=== PATIENT | male | born 1945 | race Two or more races ===

== ENCOUNTER → 2017-05-31 11:08 | Outpatient (POV) | payer OTHER, SELFPAY ==
[2017-05-31 11:25] VITALS: BP 130/74; PULSE 91; RESP 20; O2SAT 97; BMI 32.9
--- NOTE | 2017-05-31 12:07 | HMH.PAINSOAP ---
[facility] Pain Management SOAP Note Subjective:: Patient Is a very pleasant 71-year-old man who presents today for follow-up. Patient has been seen in the past by us he was getting [place] 7.5 mg 1 p.o. twice daily. He said that this medication helped him greatly. Patient did however move down to [place] for a time. Patient is now back in [place]. Patient is interested in new MRI and potentially more injections. Patient states his pain is a 6 out of 10 today. Most of it being in his low back and his left leg. Patient also states he has some new neck pain as well. Patient states that activity makes his pain worse while rest makes it better. ROS General: no recent weight change, no fever, no sleep disturbances Respiratory: no cough, no shortness of air, no recurring pulmonary infections Cardiovascular/Peripheral Vascular: No chest pain, No palpitations, no edema, no shortness of breath. Gastrointestinal: no incontinence, normal bowel movements reported Genitourinary: no incontinence Musculoskeletal: Neck pain, back pain, bilateral leg pain Psychiatric: normal mood/ affect, [denies depression], [denies anxiety] Neurological: [denies weakness in extremities], [denies balance issues] Objective:: Physical Exam General: Alert and oriented x3, no acute distress, pleasant and cooperative, on room air Lungs: Resps E/U, Symmetrical chest expansion, Eyes: PERRL Musculoskeletal: Flexion and extension of lumbar spine somewhat guarded secondary to pain, deep tendon reflexes normal, strength in upper and lower extremities [5/5], slightly antalgic gait noted, positive straight leg test bilaterally Neurological: speech clear, medical planner equal, no gross sensory deficits Assessment:: Degenerative disc disease of the lumbar spine with lumbar radiculopathy, lumbar spondylosis, neck pain Plan:: We will order a lumbar MRI for this patient. We will also give him 1 month of [place] 7.5 mg [address] twice daily. Dr. Chang has reviewed this chart and agrees with this plan of care. Patient and I had a long discussion about our contract and about the legalities of him going to [place]. Patient understands that he can only receive medication from one location. Patient is to notify us of any travel. Patient's contract was renewed. Patient's ASHLEY #[id number] reviewed and appropriate. We will send the patient for drug screen at his next visit. Patient has been prescribed a controlled substance after being counseled on the medication, medication safety, and possible side effects. ASHLEY report has been obtained and reviewed prior to prescription and found to be appropriate. Opioid contract was reviewed and signed by the patient, and that they have agreed to all of the terms set forth by our compliance program. This note was dictated using voice recognition software and may contain errors or omissions
--- NOTE | 2017-05-31 12:10 | P.CONS_ITS ---
[facility] Pain Management SOAP Note Subjective:: Patient Is a very pleasant 71-year-old man who presents today for follow-up. Patient has been seen in the past by us he was getting [place] 7.5 mg 1 p.o. twice daily. He said that this medication helped him greatly. Patient did however move down to [place] for a time. Patient is now back in [place]. Patient is interested in new MRI and potentially more injections. Patient states his pain is a 6 out of 10 today. Most of it being in his low back and his left leg. Patient also states he has some new neck pain as well. Patient states that activity makes his pain worse while rest makes it better. ROS General: no recent weight change, no fever, no sleep disturbances Respiratory: no cough, no shortness of air, no recurring pulmonary infections Cardiovascular/Peripheral Vascular: No chest pain, No palpitations, no edema, no shortness of breath. Gastrointestinal: no incontinence, normal bowel movements reported Genitourinary: no incontinence Musculoskeletal: Neck pain, back pain, bilateral leg pain Psychiatric: normal mood/ affect, [denies depression], [denies anxiety] Neurological: [denies weakness in extremities], [denies balance issues] Objective:: Physical Exam General: Alert and oriented x3, no acute distress, pleasant and cooperative, on room air Lungs: Resps E/U, Symmetrical chest expansion, Eyes: PERRL Musculoskeletal: Flexion and extension of lumbar spine somewhat guarded secondary to pain, deep tendon reflexes normal, strength in upper and lower extremities [5/5], slightly antalgic gait noted, positive straight leg test bilaterally Neurological: speech clear, bus escort equal, no gross sensory deficits Assessment:: Degenerative disc disease of the lumbar spine with lumbar radiculopathy, lumbar spondylosis, neck pain Plan:: We will order a lumbar MRI for this patient. We will also give him 1 month of [place] 7.5 mg [address] twice daily. [address]. Chang has reviewed this chart and agrees with this plan of care. Patient and I had a long discussion about our contract and about the legalities of him going to [place]. Patient understands that he can only receive medication from one location. Patient is to notify us of any travel. Patient's contract was renewed. Patient's ASHLEY #[id number] reviewed and appropriate. We will send the patient for drug screen at his next visit. Patient has been prescribed a controlled substance after being counseled on the medication, medication safety, and possible side effects. ASHLEY report has been obtained and reviewed prior to prescription and found to be appropriate. Opioid contract was reviewed and signed by the patient, and that they have agreed to all of the terms set forth by our compliance program. This note was dictated using voice recognition software and may contain errors or omissions
== END ==
PROVIDERS: Family Provider Family Medicine; PCP Family Medicine; Visit Provider Clinical Nurse Specialist Family Health
DX: M47.26 Other spondylosis with radiculopathy, lumbar region (principal)
CPT/HCPCS: 99212

== ENCOUNTER → 2018-06-06 10:04 | Outpatient (POV) | payer MEDICARE, SELFPAY ==
[2018-06-06 10:24] VITALS: BP 159/75; PULSE 74; RESP 18; O2SAT 98; BMI 33.7
--- NOTE | 2018-06-06 10:32 | P.CONS_ITS ---
[facility] Pain Management SOAP Note Subjective:: Patient is a pleasant 72-year-old male who presents today for follow- up. Patient was last seen last year since that time he moved to [place] and is now back. Patient was getting [place] 7.5 mg 1 p.o. twice daily however we will be unable to continue this due to him receiving medication from another physician along with an unattended UDS. Patient and I discussed potential injections he rates his pain an 8 out of 10 today he states that injections do not work for him. He is also asking me about primary care doctors in the area. ROS General: no recent weight change, no fever, no sleep disturbances Respiratory: no cough, no shortness of air, no recurring pulmonary infections Cardiovascular/Peripheral Vascular: No chest pain, No palpitations, no edema, no shortness of breath. Gastrointestinal: no incontinence, normal bowel movements reported Genitourinary: no incontinence Musculoskeletal: Back pain, leg pain Psychiatric: normal mood/ affect, Neurological: [denies weakness in extremities], [denies balance issues] Objective:: Physical Exam General: Alert and oriented x3, no acute distress, pleasant and cooperative, [on room air] Lungs: Resps E/U, Symmetrical chest expansion, Eyes: PERRL Musculoskeletal: Flexion and extension of lumbar spine somewhat guarded secondary to pain, deep tendon reflexes normal, strength in upper and lower extremities [5/5], [abnormal gait noted] Neurological: speech clear, ip/mosaic technician equal, no gross sensory deficits Assessment:: Degenerative disc disease lumbar spine with lumbar radiculopathy Plan:: We will follow-up with this patient on an as-needed basis if he decides he would like to move forward with injective therapy. I also gave him information in regards to primary care doctors in the area. Dr. Chang has reviewed this note and agrees with this plan of care. This note was dictated using voice recognition software and may contain errors or omissions
== END ==
PROVIDERS: PCP Family Medicine Geriatric Medicine; Visit Provider Clinical Nurse Specialist Family Health
DX: M51.16 Intervertebral disc disorders with radiculopathy, lumbar region (principal)
CPT/HCPCS: 99212

== ENCOUNTER → 2021-04-08 10:52 | Outpatient (POV) | payer MEDICARE, SELFPAY ==
--- NOTE | 2021-07-03 08:00 | HMH.PMCON ---
Assessment and Plan (1) Degenerative joint disease (DJD) of lumbar spine Status: Acute Category: Medical Code(s): M47.816 - Spondylosis without myelopathy or radiculopathy, lumbar region (2) Lumbar radiculopathy Status: Acute Category: Medical Code(s): M54.16 - Radiculopathy, lumbar region - Assessment and plan all Dx Assessment and Plan for all problems:: Patient has tried and failed conservative therapies of home stretching and anti-inflammatories he has currently taking hydrocodone 7.5 mg twice a day as needed for pain. He does report failing physical therapy in the past. It worsened his pain. We will schedule the patient for a lumbar epidural steroid injection at L4-5. Risks and benefits of the procedure were discussed with the patient. Dr. Chang has reviewed this note and agrees with this plan of care. This note was dictated using voice recognition software and make contain errors or omissions. HPI - Data of Consult Patient: new to practice Consult date: 04/08/21 Requesting Physician: Rhiannon Montague APRN - Consult Narrative Reason for consult: Low back and bilateral leg pain History of present illness: Mr. Mart is a 75 year old male who presents today for consultation for low back and bilateral lower extremity pain. Mr. Mart has been treated in our clinic in the past, with it being more than 3 years ago. Patient states he has chronic back and leg pain and that his pain has worsened over the last few months. Is retired and states that his pain limits his physical activity. Reports pain to be Constant in nature and sharp at times with numbness and tingling. Patient had epidural injections in the past and reports significant relief with these injections. CC: Rhiannon Montague APRN [facility] History I have reviewed the patient's past medical history: Yes Medical History: Reports:: Diabetes Mellitus Type 2, Hypertension *Have you ever received a pneumonia vaccine?: Yes *Have you received a flu vaccine this season?: Yes Other Surgeries: Yes: No Previous Surgery - *Social History Last grade of school completed: 7th or 8th Smoking Status: Current every day smoker Tobacco Type: cigarettes Alcohol Intake: current *Occupational Status:: retired *Travel in the last 8 weeks: None Family Hx:: Unable to obtain, No significant family history Review of Systems - *Musculoskeletal Reports back pain, Reports radiating pain into limb, Reports tingling Comments: Low back pain radiating to bilateral lower extremities Meds Home Medications Medication Instructions Recorded Confirmed Type Finasteride [Proscar] 5 mg PO DAILY 05/31/17 05/31/17 History Hydrocodone/Acetaminophen 1 each PO DIRECTED 05/31/17 05/31/17 History [Hydrocodone-Acetamin 5-325 mg] Insulin Glargine,Hum.rec.anlog 15 unit SQ DAILY 05/31/17 05/31/17 History [Lantus Insulin 100units/mL 10mL vial] Metformin HCl 1,000 mg PO BID 05/31/17 05/31/17 History Terazosin HCl [Hytrin 5mg Capsule] 5 mg PO DAILY 05/31/17 05/31/17 History lisinopriL [Lisinopril 20mg Tab] 20 mg PO DAILY 05/31/17 05/31/17 History Hydrocodone/Acetaminophen 1 tab PO BID #60 tab 05/09/21 Rx [Hydrocodone-Acetamin 7.5-325] Allergies Allergy/AdvReac Type Severity Reaction Status Date / Time No Known Drug Allergies Allergy Unknown Unverified 02/16/17 14:11 [NO KNOWN DRUG ALLERGIES] Opioid Risk Tool - Opioid Risk Tool-Male Family hx alcohol abuse: N Family hx illegal drugs: N Family hx rx drug abuse: N Personal hx alcohol abuse: N Personal hx illegal drugs: N Personal hx rx drug abuse: N Age: 45+ Hx of sexual abuse: N Mental health issues-ADD,OCD,Bipolar, etc: N Hx of depression: N Male Risk Score: 0
== END ==
PROVIDERS: Visit Provider Clinical Nurse Specialist Family Health
DX: M51.16 Intervertebral disc disorders with radiculopathy, lumbar region (principal)
CPT/HCPCS: 99212; G0463

== ENCOUNTER → 2021-05-08 13:25 | Outpatient (POV) | payer MEDICARE, SELFPAY ==
[2021-05-08 13:56] VITALS: BP 152/72; PULSE 70; RESP 20; TEMP 36; O2SAT 97; BMI 33.6
--- NOTE | 2021-05-08 16:27 | P.CONS_ITS ---
[facility] Pain Management SOAP Note Subjective:: Patient is a pleasant 75-year-old male who is here for medication refill and follow-up. Patient is currently being treated for degenerative disc disease of the lumbar spine with lumbar radiculopathy symptoms. Patient is being managed with [place] 7.5 mg twice a day. Patient denies any side effects from the medications. Patient denies any changes to the location and type of pain. Patient states that this is adequately helping manage his pain. Rates pain as 7 out of 10. [facility] number [id number]. General: No recent weight changes, no fever, no sleep disturbances Respiratory: No cough, no shortness of air, no recurring pulmonary infections Cardiovascular/peripheral vascular: No chest pain, no palpitations, no edema, no shortness of breath Gastrointestinal: No new onset incontinence, normal bowel movements reported Genitourinary: No new onset incontinence Musculoskeletal: Low back pain Psychiatric: [Normal mood/affect] Neurological: [Denies weakness in extremities], [denies balance issues] Objective:: General: Alert and oriented x3, no acute distress, pleasant and cooperative, [on room air] Lungs: Respirations even and unlabored, symmetrical chest expansion Eyes: PERRL Musculoskeletal: Flexion and extension of lumbar [spine] somewhat guarded secon pushpa to pain, [antalgic gait noted] Neurological: Speech clear, no gross sensory deficit Assessment:: Degenerative disc disease of the lumbar spine with lumbar radiculopathy symptoms Plan:: We will continue the patient's [place] 7.5 mg twice a day. We will provide the patient with 1 month of refills. We would like to see the patient back in 1 month for follow-up and reevaluation of chronic pain syndrome. Patient has been advised of risks of oversedation with the prescribed medication. Narcan has been offered to the paitent in the event of oversedation. Patient has been advised that a family member should also be educated regarding administration of Narcan. Patient has been instructed to contact the clinic with any concerns before the next appointment. Dr. Chang has reviewed this note and agrees with this plan of care. This note was dictated using voice recognition software and make contain errors or omissions. [facility] History *Have you ever received a pneumonia vaccine?: Yes *Have you received a flu vaccine this season?: Yes - *Social History Smoking Status: Current every day smoker Alcohol Intake: current *Occupational Status:: retired *Travel in the last 8 weeks: None Family Hx:: Unable to obtain, No significant family history
[2021-05-08 16:33] LABS: Amphetamine/Metha Screen,Urine Negative ng/ml (<1000)
[2021-05-08 16:34] LABS: Barbiturates Screen,Urine Negative ng/ml (<200)
[2021-05-08 16:35] LABS: Benzodiazepines Screen,Urine Negative ng/ml (<200); Cannabinoid Screen,Urine Negative ng/ml (<50)
[2021-05-08 16:36] LABS: Cocaine Screen,Urine Negative ng/ml (<300)
[2021-05-08 16:37] LABS: Methadone Screen,Urine Negative ng/ml (<300); Opiate Screen,Urine Positive ng/ml (<300)
[2021-05-08 16:38] LABS: Phencyclidine Screen,Urine Negative ng/ml (<25)
[2021-05-19 23:11] LABS: Codeine Negative (Cutoff=100); Hydrocodone Positive (.); Hydromorphone Positive (.); Morphine Positive (.); Opiates Positive (.)
== END ==
PROVIDERS: Visit Provider Student in an Organized Health Care Education/Training Program
DX: M51.16 Intervertebral disc disorders with radiculopathy, lumbar region (principal); Z79.891 Long term (current) use of opiate analgesic
CPT/HCPCS: 80305; 80361; 80365; 99212; G0463; G0480

== ENCOUNTER → 2021-10-14 09:10 | Outpatient (POV) | payer MEDICARE, SELFPAY ==
[2021-10-14 09:27] VITALS: BP 127/70; PULSE 80; RESP 20; O2SAT 96; BMI 33.7
--- NOTE | 2021-10-14 13:20 | HMH.PAINSOAP ---
[facility] Pain Management SOAP Note Subjective:: Patient is a pleasant 76-year-old male who presents today for follow-up. We are currently treating the patient for degenerative disc disease of lumbar spine with lumbar radiculopathy symptoms. Today he rates his pain a 10 out of 10. He states his pain is all in his low back that radiates down his right leg to his right foot. He does also state he has some right shoulder pain. He describes this as a aching, sharp, throbbing sensation that is worse with increased activity. Patient states this is a new pain. He states he has had a couple falls over the last month at his daughter's house. Patient's daughter states that she feels like his balance is altered and he has had increasing issues. He stated that she has 2 steps that are different heights that he tripped over them but did not fall, however he was awkwardly positioned and he feels that he may have pulled something. Has had injective therapy in the past with significant improvement. Patient has tried [id number] Tylenol and ibuprofen with minimal improvement of symptoms. He has tried and failed conservative treatment of oral medications and home stretching. He has in the past been prescribed [place] 7.5 mg twice a day as needed for pain. He states this medication has helped in the past. Patient states that his Dr. Richardson that was in [place] gave him his last injection and it provided significant improvement of his symptoms. She cannot remember what injection that was. His Alirio is [id number]. It has been reviewed and appropriate. Review of Systems: General: No recent weight changes, no fever, no sleep disturbances Respiratory: No cough, no shortness of air, no recurring pulmonary infections Cardiovascular/peripheral vascular: No chest pain, no palpitations, no edema, no shortness of breath Gastrointestinal: No new onset incontinence, normal bowel movements reported Genitourinary: No new onset incontinence Musculoskeletal: Right shoulder pain, low back pain, right leg pain Psychiatric: [Normal mood/affect] Neurological: [Denies weakness in extremities], [denies balance issues] Objective:: Physical Exam: General: Alert and oriented x3, no acute distress, pleasant and cooperative Lungs: Respirations even and unlabored, symmetrical chest expansion Eyes: PERRL Musculoskeletal: Flexion and extension of lumbar [spine] somewhat guarded secondary to pain, [antalgic gait noted]. Point tenderness noted along right shoulder and right lumbar spine. Neurological: Speech clear, no gross sensory deficit Assessment:: Degenerative disc disease of lumbar spine with lumbar radiculopathy symptoms, right shoulder pain Plan:: Patient is having significant pain along his right shoulder and down his lumbar spine to his right foot. Patient has had a couple of near falls at his daughter's home over the last month. We do not have any updated lumbar imaging or shoulder imaging. I have discussed with the patient that before we do any injective therapy I would like to have updated imaging. I will order a lumbar MRI and a right shoulder MRI at today's visit. I will also prescribe the patient a compounding cream. We had previously written [place] 7.5 mg in the past however patient does have a history of failed urine drug screens. At this time I will not prescribe any medications. I have also discussed with the patient regarding signing a release so we can get his records from Dr. Richardson. The patient will follow up following imaging. At that time we will reevaluate his symptoms. Patient has been instructed to contact the clinic with any concerns before the next appointment. Dr. Chang has reviewed this note and agrees with this plan of care. This note was dictated using voice recognition software and make contain errors or omissions. [facility] History I have reviewed the patient's past medical history: Yes Medical History: Reports:: Diabetes Mellitus Type 2, Hypertension *Ash
== END ==
PROVIDERS: PCP Emergency Medicine; Visit Provider Nurse Practitioner Family
DX: M51.16 Intervertebral disc disorders with radiculopathy, lumbar region (principal); M25.511 Pain in right shoulder
CPT/HCPCS: 99212; G0463

== ENCOUNTER → 2022-08-05 12:37 | Outpatient (CLI) | payer MEDICARE, SELFPAY ==
[2022-08-05 13:40] LABS: Basophils % 0.3 % (0.1-2.0); Eosinophils # 0.1 K/mm3 (0.0-0.4); Eosinophils % 1.5 % (0.1-12.0); Hematocrit 39.9 % (42.0-52.0); Hemoglobin 12.9 g/dL (14.1-18.0); Lymphocytes # 1.4 K/mm3 (0.7-4.5); Lymphocytes % 19.8 % (10-50); Mean Corpuscular HGB Conc 32.3 g/dL (31.8-35.4); Mean Corpuscular Hemoglobin 28.7 pg (27.0-31.2); Mean Platelet Volume 8.9 fl (7.4-10.4); Monocytes # 0.4 K/mm3 (0.1-1.0); Monocytes % 5.6 % (1.7-9.3); Neutrophils % 72.8 % (37.0-80.0); Platelet Count 167 K/mm3 (142-424); Red Blood Count 4.48 M/mm3 (4.60-6.20); Red Cell Distribution Width 13.1 % (11.5-17.5); White Blood Count 6.9 K/mm3 (4.8-10.8)
[2022-08-05 13:50] LABS: Hemoglobin A1C 7.6 % (4.0-6.0)
[2022-08-05 14:24] LABS: Alanine Aminotransferase 33 U/L (12-78); Albumin Level 4.6 g/dl (3.5-5.0); Alkaline Phosphatase 53 U/L (38-126); Anion Gap 15.8 mEq/L (5-15); Aspartate Amino Transferase 32 U/L (17-59); Bilirubin,Indirect 1.1 mg/dL (0.0-0.9); Bilirubin,Total 1.1 mg/dl (0.2-1.3); Bilirubin,Unconjugated 1.3 mg/dL (0.0-1.1); Blood Urea Nitrogen 22 mg/dl (9-20); Calcium 10.1 mg/dl (8.4-10.2); Carbon Dioxide 30 mmol/L (22.0-30.0); Chloride 101 mmol/L (98-107); Chol/HDL Ratio 2.2 (1-3.5); Cholesterol 109 mg/dl (140-200); Estimated Glomerular Filt Rate 93 ml/min (>60); GFR (African American) 113 ML/MIN (>60); Glucose 134 mg/dl (74-100); HDL Cholesterol 50 mg/dl (40-60); Potassium 4.8 mmoL/L (3.5-5.1); Sodium 142 mmol/L (136-145); Total Protein,Serum 7.4 g/dl (6.3-8.2); Triglycerides 107 mg/dl (30-150); VLDL Cholesterol 21 mg/dL (0-40)
[2022-08-05 14:36] LABS: Direct LDL Cholesterol 43.93 mg/dL (100-129)
[2022-08-05 14:40] LABS: Free T4 (Free Thyroxine) 0.88 ng/dl (0.78-2.19)
[2022-08-05 14:56] LABS: Thyroid Stimulating Hormone 2.14 uIU/mL (0.465-4.68)
== END ==
PROVIDERS: PCP Emergency Medicine; Visit Provider Nurse Practitioner Family
DX: E11.9 Type 2 diabetes mellitus without complications (principal); E78.2 Mixed hyperlipidemia; I10 Essential (primary) hypertension; I48.20 Chronic atrial fibrillation, unspecified; R00.2 Palpitations; Z79.4 Long term (current) use of insulin; R94.31 Abnormal electrocardiogram [ECG] [EKG]
CPT/HCPCS: 36415; 80048; 80061; 80076; 83036; 84439; 84443; 85025; 93225

== ENCOUNTER → 2022-11-24 11:51 | Outpatient (CLI) | payer MEDICARE, SELFPAY ==
[2022-11-24 13:42] LABS: Basophils % 0.2 % (0.1-2.0); Eosinophils # 0.1 K/mm3 (0.0-0.4); Eosinophils % 1.2 % (0.1-12.0); Hemoglobin 14.3 g/dL (14.1-18.0); Lymphocytes # 1.9 K/mm3 (0.7-4.5); Lymphocytes % 20.3 % (10-50); Mean Corpuscular HGB Conc 31.2 g/dL (31.8-35.4); Mean Corpuscular Hemoglobin 28.1 pg (27.0-31.2); Mean Platelet Volume 8.7 fl (7.4-10.4); Monocytes # 0.5 K/mm3 (0.1-1.0); Monocytes % 5.2 % (1.7-9.3); Neutrophils # 6.7 K/mm3 (1.8-7.8); Platelet Count 214 K/mm3 (142-424); Red Blood Count 5.11 M/mm3 (4.60-6.20); Red Cell Distribution Width 13.8 % (11.5-17.5); White Blood Count 9.2 K/mm3 (4.8-10.8)
[2022-11-24 13:56] LABS: Anion Gap 15.5 mEq/L (5-15); Blood Urea Nitrogen 23 mg/dl (9-20); Calcium 9.9 mg/dl (8.4-10.2); Carbon Dioxide 28 mmol/L (22.0-30.0); Chloride 102 mmol/L (98-107); Estimated Glomerular Filt Rate 65 ml/min (>60); GFR (African American) 78 ML/MIN (>60); Glucose 155 mg/dl (74-100); Potassium 4.5 mmoL/L (3.5-5.1); Sodium 141 mmol/L (136-145)
[2022-11-24 14:12] LABS: Free T4 (Free Thyroxine) 1.03 ng/dl (0.78-2.19)
[2022-11-24 14:27] LABS: Thyroid Stimulating Hormone 2.03 uIU/mL (0.465-4.68)
== END ==
PROVIDERS: PCP Emergency Medicine; Visit Provider Internal Medicine
DX: E11.9 Type 2 diabetes mellitus without complications (principal); E78.5 Hyperlipidemia, unspecified; I10 Essential (primary) hypertension; I48.91 Unspecified atrial fibrillation; R00.2 Palpitations; R26.81 Unsteadiness on feet; R53.83 Other fatigue; R55 Syncope and collapse; R94.31 Abnormal electrocardiogram [ECG] [EKG]; Z79.4 Long term (current) use of insulin
CPT/HCPCS: 36415; 80048; 82533; 83520; 84439; 84443; 85025

== ENCOUNTER → 2022-11-25 07:37 | Outpatient (CLI) | payer MEDICARE, SELFPAY | PROVIDERS: PCP Emergency Medicine; Visit Provider Internal Medicine | DX: R55 Syncope and collapse (principal); R42 Dizziness and giddiness; R26.9 Unspecified abnormalities of gait and mobility | CPT/HCPCS: 36415; 82533 ==

== ENCOUNTER → 2022-11-26 07:16 | Outpatient (CLI) | payer MEDICARE, SELFPAY ==
--- NOTE | 2022-11-26 07:16 | NM_ITS ---
APPROVED REPORT Exam: Nuclear Stress Test Indication: SYNCOPE Patient Location: Outpatient Stress Tech: Kathia Sanchez SC Tech:JAMES Naidu RT(R)(N) Ht: 5 ft 5 in Wt: 200 lbs HR: 96 bpm BP: 151/64 mmHg BSA: 1.98 m2 Rhythm: NSR TID: 1.05 BMI: 33.2 History: syncope Procedure: Patient exercised on Doni protocol 6 minutes and sec, resting heart rate 96 bpm, resting blood pressure 151/64 mmHg, with exercise maximum heart rate achived was 157 bpm which is 111 % of the maximum predicted heart rate and blood pressure was 221/92 mmHg. Test was stopped due to Dyspnea. Patient denied any complaint of chest pain. Patient has Average exercise capacity, achieved 7.0 METs of workload on treadmill, the blood pressure response to exercise was Hypertensive. The patient was not able to roll over on the table to do prone images. Cardiac Stress and Resting SPECT Images: Cardiac Stress and Resting SPECT images were obtained using technetium 99m Myoview 30.1 mCi stress and 10.02 mCi at rest. The patient could not lie on his abdomen. Therefore, prone stress imaging could not be performed. This may affect the diagnostic interpretation of the study findings. Resting and stress imaging in supine position demonstrate a medium sized, moderate, fixed perfusion defect in the basal to mid inferior LV wall. Gated imaging demonstrates mild reduction in global LV systolic function. There is moderate hypokinesis of the basal inferior wall. LVEF is calculated at 44%. Conclusion: The patient could not lie on his abdomen. Therefore, prone stress imaging could not be performed. This may affect the diagnostic interpretation of the study findings. Medium sized, moderate, fixed perfusion defect in the basal to mid inferior LV wall. No evidence of reversible ischemia. Gated imaging demonstrates mild reduction in global LV systolic function. There is moderate hypokinesis of the basal inferior wall. LVEF is calculated at 44%. Of note, the patient had a hypertensive BP response to exercise. Blood pressure control is recommended. At peak stress, ECG demonstrated NSR with frequent PACs and occasional PVCs. Electronically signed by : Alexandra Rodriguez MD 11/28/2022 23:58:48
--- NOTE | 2022-11-26 08:56 | CA_ITS ---
APPROVED REPORT Exam: Exercise Treadmill Technologist: Claritza Petersen, Ht: 5 ft 5 in Wt: 200 lbs BSA: 1.98 m2 HR: 88 bpm BP: 188/92 mmHg Rhythm: NSR Indications: Syncope Medical History Medications: Metformin,,,,, Atorvastatin,,,,, TAMSULOSIN,Tamsu,,,, AmiTRIPTYLINE,,,,, LanTUS,,,,, Finasteride,,,,, Apixaban,,,,, Hydrocodone Acetaminophen,,,,, Stress Test Details Test: Doni HR Resting HR: 96 bpm Max Heart Rate (APMHR): 141 bpm Max HR Achieved: 157 bpm Target HR (85% APMHR): 120 bpm % of APMHR: 111 Recovery HR: 96 bpm HR response to stress: Normal HR response to stress BP Resting BP: 151.0/64.0 mmHg Max BP: 221.0/92.0 mmHg Recovery BP: 165.0/80.0 mmHg BP response to stress: Abnormal hypertensive response to stress. ECG Resting ECG: NSR, first-degree AVB, frequent PACs, nonspecific ST changes in anterolateral leads Stress ECG: No significant ST changes Arrhythmia: Frequent PACs, occasional PVCs Recovery ECG: No significant ST changes Recovery Arrhythmia: PACs Clinical Exercise duration: 06:00 min Highest Stage Achieved: II Exercise capacity: 7.0 METs Overall Exercise Capacity for Age: Average Stress ECG Conclusion The patient was able to exercise for a total of 6 minutes, 0 seconds. He achieved a total of 7 METS. He has an average exercise capacity compared to age and sex matched peers. He has a normal HR, but hypertensive BP, response to exercise. Max HR: 150 % of PM: 106% Max BP: 221/92 METs: 7.0 Test stopped due to: SOA, Fatigue Symptoms: No CP. Arrhythmias/Ectopy: Frequent PACs, occasional PVCs ST-T Changes: Within normal ST response to exercise. Conclusion: Average exercise capacity. Hypertensive BP response to exercise. No significant ST changes at peak stress. Frequent PACs, occasional PVCs. Myoview images are reported separately. Test Summary REST . . . . . . . Sitting REST . . . . . . . Standing REST 05:13 0.0 0.0 96 . 151/ 64 . . Stage 1 01:00 10.0 1.7 102 . . . . Stage 1 02:00 10.0 1.7 110 . . . . Stage 1 03:00 10.0 1.7 115 . 178/ 68 . . Stage 2 01:00 12.0 2.5 125 . . . . Stage 2 02:00 12.0 2.5 132 . . . . Stage 2 03:00 12.0 2.5 156 . . . Stop exercise at 06:00 RECOVERY 01:00 0.0 0.0 141 . . . . RECOVERY 02:00 0.0 0.0 129 . . . . RECOVERY 03:00 0.0 0.0 119 . 206/100 . . RECOVERY 04:00 0.0 0.0 113 . 206/100 . . RECOVERY 05:00 0.0 0.0 103 . 221/ 92 . . RECOVERY 06:00 0.0 0.0 104 . 202/ 88 . . RECOVERY 07:00 0.0 0.0 97 . 202/ 88 . . RECOVERY 08:00 0.0 0.0 95 . 179/ 82 . . RECOVERY 09:00 0.0 0.0 93 . 165/ 80 . . RECOVERY 09:21 0.0 0.0 92 . 165/ 80 . . Electronically signed by : Alexandra Rodriguez MD 11/28/2022 23:55:22
[2022-11-28 07:15] LABS: Sodium, Urine 176 mmol/24 hr (58-337); Sodium, Urine 98 mmol/L (Not Estab.)
== END ==
PROVIDERS: Internal Medicine; PCP Emergency Medicine; Visit Provider Physician Assistant
DX: E11.9 Type 2 diabetes mellitus without complications (principal); E78.5 Hyperlipidemia, unspecified; I10 Essential (primary) hypertension; I48.91 Unspecified atrial fibrillation; R00.2 Palpitations; R26.81 Unsteadiness on feet; R53.83 Other fatigue; R55 Syncope and collapse; R94.31 Abnormal electrocardiogram [ECG] [EKG]; Z79.4 Long term (current) use of insulin
CPT/HCPCS: 78452; 84300; 93017; A9502

== ENCOUNTER → 2022-11-30 08:53 | Outpatient (CLI) | payer MEDICARE, SELFPAY ==
[2022-11-30 10:27] LABS: Hemoglobin A1C 7.2 % (4.0-6.0)
== END ==
PROVIDERS: Physician Assistant; Visit Provider Nurse Practitioner
DX: R73.03 Prediabetes (principal)
CPT/HCPCS: 36415; 83036

== ENCOUNTER 2022-12-29 09:00 | Day surgery (SDC) | payer MEDICARE, SELFPAY ==
[2022-12-29] VITALS (10 sets, daily range): BP systolic 104–198; BP diastolic 73–93; PULSE 51–76; RESP 16–18; O2SAT 93–99; BMI 32.8
--- NOTE | 2022-12-29 07:11 | IR_ITS ---
APPROVED REPORT Patient Location: Outpatient Learning Support Teacher: JAMES Causey RT (R) PROCEDURES Left heart catheterization Left ventriculogram Selective coronary angiogram Drug-eluting stent deployment to the proximal LAD INDICATION High risk abnormal Myoview, Angina pectoris, Coronary artery disease, Informed consent was obtained prior to the procedure. COMPLICATIONS None Estimated Blood Loss: Less than 10 ml TECHNIQUE One percent lidocaine used to anesthetize the right anterior aspect of the wrist. The right radial artery was accessed via the Seldinger technique. A 6 [place]i sheath was placed in the right radial artery. 2.5 mg of Verapamil, 800 mcg of nitroglycerin, 1mg Lidocaine and 5000 U Heparin were given through the arterial sheath. The papa catheter and 6 [place]i JL 3 guide catheter were used to perform left heart catheterization, left ventriculogram and selective coronary angiogram. At the end the diagnostic angiogram therapeutic heparin was administered giving a therapeutic ACT and the guide catheter was placed in the left main artery followed by Choice PT extra-support wire down the LAD. A 2.0 x 12 mm balloon was used to predilate the proximal LAD stenosis at 20 leana. Following this a 3 mm x 15 mm Don frontier stent was placed in the ostial proximal portion of the LAD and deployed at 20 and then 24 leana. Following this a 3.25 x 8 mm noncompliant balloon was deployed at 24 leana in the ostial segment and proximal segment of the stent. Excellent angiograph results were obtained at the end of the procedure. LD II flow was present at the beginning the procedure with LD-3 flow at the end of the procedure. The procedure the apparatus was removed the sheath was removed good hemostasis achieved using TR banding patient was transferred to the postop holding stabilization ANGIOGRAPHIC RESULTS The left main artery Normal The left anterior descending artery Has an ostial proximal greater than 90% stenosis accompanied by LD II flow The circumflex artery Large codominant with 20 to 30% stenosis in the proximal segment of the large first obtuse marginal artery The right coronary artery Codominant with mid vessel 10 to 20% stenoses and distal 20 to 30% stenosis The LÓPEZ ventriculogram reveals Ejection fraction 45% with anterior wall hypokinesis The left ventricular end-diastolic pressure 20 mmHg IMPRESSION Critical proximal LAD disease as described above Successful stenting of the proximal ID critical disease reduced to 0% with 1 drug-eluting stent Reduced ejection fraction likely secondary to hibernating myocardium Elevated LVEDP PLAN 1. Dual antiplatelet therapy 2. Standard therapy for ischemic heart disease 3. LDL less than 55 to be achieved with high intensity statin 4. Avoidance of tobacco products 5. Risk factor modification 6. Cardiac rehabilitation Electronically signed by : Toby Lai MD 12/29/2022 12:50:00
[2022-12-29 09:57] LABS: Basophils % 0.2 % (0.1-2.0); Eosinophils # 0.1 K/mm3 (0.0-0.4); Eosinophils % 1.8 % (0.1-12.0); Hematocrit 38.7 % (42.0-52.0); Hemoglobin 13.2 g/dL (14.1-18.0); Lymphocytes # 1.3 K/mm3 (0.7-4.5); Lymphocytes % 20.2 % (10-50); Mean Corpuscular HGB Conc 34.1 g/dL (31.8-35.4); Mean Corpuscular Hemoglobin 30.7 pg (27.0-31.2); Mean Corpuscular Volume 90.2 fl (80-94); Mean Platelet Volume 8.5 fl (7.4-10.4); Monocytes # 0.4 K/mm3 (0.1-1.0); Monocytes % 5.6 % (1.7-9.3); Neutrophils # 4.6 K/mm3 (1.8-7.8); Neutrophils % 72.2 % (37.0-80.0); Platelet Count 176 K/mm3 (142-424); Red Blood Count 4.29 M/mm3 (4.60-6.20); Red Cell Distribution Width 13.9 % (11.5-17.5); White Blood Count 6.4 K/mm3 (4.8-10.8)
[2022-12-29 10:07] LABS: INR 1.01 (0.9-1.1); Prothrombin Time 10.9 seconds (10.1-12.5)
[2022-12-29 10:09] LABS: Chloride 102 mmol/L (98-107); Potassium 4.4 mmoL/L (3.5-5.1); Sodium 138 mmol/L (136-145)
[2022-12-29 10:12] LABS: Anion Gap 8.4 mEq/L (5-15); Blood Urea Nitrogen 18 mg/dl (9-20); Carbon Dioxide 32 mmol/L (22.0-30.0); Creatinine Clearance Estimated 81 mL/min (50-200); Estimated Glomerular Filt Rate 93 ml/min (>60); GFR (African American) 113 ML/MIN (>60)
[2022-12-29 10:13] LABS: Calcium 9.2 mg/dl (8.4-10.2); Glucose 146 mg/dl (74-100)
[2022-12-29 13:33] LABS: CATHL Activated Clotting Time > 400 SEC (74-125)
== END 2022-12-29 15:56 | disposition home or self-care (01) ==
PROVIDERS: PCP Emergency Medicine; Visit Provider Internal Medicine
DX: E78.5 Hyperlipidemia, unspecified (principal); I48.20 Chronic atrial fibrillation, unspecified; E11.9 Type 2 diabetes mellitus without complications; I51.9 Heart disease, unspecified; R00.2 Palpitations; R26.81 Unsteadiness on feet; R53.83 Other fatigue; R55 Syncope and collapse; R94.30 Abnormal result of cardiovascular function study, unspecified; R94.31 Abnormal electrocardiogram [ECG] [EKG]; Z79.899 Other long term (current) drug therapy; Z79.4 Long term (current) use of insulin; F17.210 Nicotine dependence, cigarettes, uncomplicated; I10 Essential (primary) hypertension; I25.118 Atherosclerotic heart disease of native coronary artery with other forms of angina pectoris
CPT/HCPCS: 36415; 80048; 85025; 85347; 85610; 92928; 93458; 99152; 99153; C1725; C1769; C1876; C9600; J1644; Q9967

== ENCOUNTER 2023-01-11 12:54 | Outpatient (RCR) | payer MEDICARE, SELFPAY | END 2023-02-28 10:00 | disposition home or self-care (01) | LOC: PT 12:54 | PROVIDERS: Visit Provider Internal Medicine | DX: I25.10 Atherosclerotic heart disease of native coronary artery without angina pectoris (principal); Z95.5 Presence of coronary angioplasty implant and graft ==

== ENCOUNTER → 2023-02-16 15:07 | Outpatient (CLI) | payer MEDICARE, SELFPAY | PROVIDERS: Visit Provider Physician Assistant | DX: R55 Syncope and collapse (principal) | CPT/HCPCS: 93270 ==

== ENCOUNTER → 2023-02-25 14:40 | Outpatient (CLI) | payer MEDICARE, SELFPAY ==
--- NOTE | 2023-02-25 14:40 | CA_ITS ---
APPROVED REPORT EXAM: Comprehensive 2D, Doppler, and color-flow Echocardiogram Soda Room Operator: Amarilis Hartmann RVT Ht: 5 ft 7 in Wt: 207lbs BSA: 2.05 BP: 169/82 mmHg Indications: A-FIB,HTN,SYNCOPE,CM,HTN,HLD,PALPS,FATIGUE,SMOKER TDS-LIMITED WINDOWS 2D Dimensions LA Volume 56.60 mL LA Volume Index 27.61 mL/m2 (M/F) 16-34 M-Mode Dimensions RVDd 2.90 cm (0.9-2.6) LA Diam 4.10 cm (1.9-4.0) LVDd 3.81 cm (3.5-5.7) LVDs 2.33 cm (3.5-5.7) IVSd 1.36 cm (0.6-1.1) PWd 0.83 cm (0.6-1.1) EF (Teich) 70.00% FS 38.80% EDV (Teich) 62.30 mL TAPSE 2.22 (<1.7) ESV (Teich) 18.70 mL LV Diastology E Decel Time 190 (160-240 msec) E/A Ratio 0.6 Aortic Valve DERREK Index 1.35 cm2/m2 AoV Peak Jasbir. 149.0 (50-130 cm/s) AO Peak GR. 8.90 mmHg AO Mean GR. 5.50 (<5 mmHg) AO VTI 29.2 (18-25 cm) DERREK (VTI) 2.83 (2.5-4.5 cm2) Mitral Valve MV E Max Jasbir. 59.0 (40-130 cm/s) MV A Velocity 104.0 (40-130 cm/s) E/A Ratio 0.57 MV PHT 56.0 ms Pulmonary Valve PV Peak Velocity 87.0 (50-150 cm/s) Left Ventricle The left ventricle is normal size. The left ventricular systolic function is normal. The left ventricular ejection fraction is within the normal range. There is increased LV wall thickness. There is normal LV segmental wall motion. Transmitral Doppler flow pattern suggests impaired LV relaxation. LVEF is 55%. Right Ventricle The right ventricle is normal size. The right ventricular systolic function is normal. Atria The left atrium size is normal. The right atrium size is normal. There is no Doppler evidence of interatrial shunt. Aortic Valve The aortic valve is mildly thickened. There is no aortic valvular stenosis. No aortic regurgitation is present. Mitral Valve The mitral valve leaflets are mildly thickened. No evidence of mitral valve stenosis. Tricuspid Valve The tricuspid valve leaflets are thin and pliable. Trace tricuspid regurgitation. There is insufficient TR jet to estimate RVSP. Pulmonic Valve The pulmonary valve is normal in structure. Trace pulmonic regurgitation. Great Vessels The aortic root is not well visualized. The IVC is not well-visualized. Pericardium There is no pericardial effusion. Other Information Study Quality: Fair Conclusion Technically difficult study due to poor acoustic windows. Normal biventricular systolic function. No significant valvular stenosis. Compared to prior workup pre-revascularization, the LVEF is now improved. Electronically signed by : Alexandra Rodriguez MD 02/25/2023 22:38:11
== END ==
LOC: RT 14:40
PROVIDERS: Visit Provider Internal Medicine
DX: I11.9 Hypertensive heart disease without heart failure (principal); I48.91 Unspecified atrial fibrillation; R00.2 Palpitations; R55 Syncope and collapse; R26.81 Unsteadiness on feet; R53.83 Other fatigue; R94.31 Abnormal electrocardiogram [ECG] [EKG]; E11.9 Type 2 diabetes mellitus without complications; E78.5 Hyperlipidemia, unspecified; Z79.4 Long term (current) use of insulin; Z79.84 Long term (current) use of oral hypoglycemic drugs; Z72.0 Tobacco use
CPT/HCPCS: 93306

== ENCOUNTER 2023-04-20 15:51 | Outpatient (CLI) | payer MEDICARE, SELFPAY ==
[2023-04-20 16:38] LABS: Basophils % 0.2 % (0.1-2.0); Eosinophils # 0.2 K/mm3 (0.0-0.4); Eosinophils % 2.4 % (0.1-12.0); Hematocrit 38.2 % (42.0-52.0); Hemoglobin 12.9 g/dL (14.1-18.0); Lymphocytes # 1.7 K/mm3 (0.7-4.5); Lymphocytes % 23.7 % (10-50); Mean Corpuscular HGB Conc 33.8 g/dL (31.8-35.4); Mean Corpuscular Volume 88.7 fl (80-94); Monocytes # 0.5 K/mm3 (0.1-1.0); Monocytes % 6.3 % (1.7-9.3); Neutrophils # 4.9 K/mm3 (1.8-7.8); Neutrophils % 67.5 % (37.0-80.0); Platelet Count 182 K/mm3 (142-424); Red Blood Count 4.31 M/mm3 (4.60-6.20); Red Cell Distribution Width 14.1 % (11.5-17.5); White Blood Count 7.3 K/mm3 (4.8-10.8)
[2023-04-20 16:54] LABS: Alanine Aminotransferase 31 U/L (12-78); Albumin Level 4.2 g/dl (3.5-5.0); Alkaline Phosphatase 77 U/L (38-126); Anion Gap 10.2 mEq/L (5-15); Aspartate Amino Transferase 28 U/L (17-59); Bilirubin,Direct 0.1 mg/dl (0.0-0.4); Bilirubin,Indirect 0.6 mg/dL (0.0-0.9); Bilirubin,Total 0.7 mg/dl (0.2-1.3); Bilirubin,Unconjugated 0.6 mg/dL (0.0-1.1); Blood Urea Nitrogen 22 mg/dl (9-20); Calcium 9.8 mg/dl (8.4-10.2); Carbon Dioxide 29 mmol/L (22.0-30.0); Chloride 105 mmol/L (98-107); Chol/HDL Ratio 4.4 (1-3.5); Cholesterol 183 mg/dl (140-200); Estimated Glomerular Filt Rate 72 ml/min (>60); GFR (African American) 87 ML/MIN (>60); Glucose 157 mg/dl (74-100); HDL Cholesterol 42 mg/dl (40-60); Magnesium 1.7 mg/dl (1.6-2.3); Potassium 4.2 mmoL/L (3.5-5.1); Sodium 140 mmol/L (136-145); Total Protein,Serum 6.8 g/dl (6.3-8.2); Triglycerides 263 mg/dl (30-150); VLDL Cholesterol 53 mg/dL (0-40)
[2023-04-20 17:25] LABS: Thyroid Stimulating Hormone 2.48 uIU/mL (0.465-4.68)
[2023-04-20 17:34] LABS: Free T4 (Free Thyroxine) 0.79 ng/dl (0.78-2.19)
== END 2023-04-20 23:59 ==
LOC: LAB 15:52
PROVIDERS: PCP Emergency Medicine; Visit Provider Internal Medicine
DX: E11.9 Type 2 diabetes mellitus without complications (principal); E78.5 Hyperlipidemia, unspecified; I10 Essential (primary) hypertension; I48.91 Unspecified atrial fibrillation; R00.2 Palpitations; R06.00 Dyspnea, unspecified; R26.81 Unsteadiness on feet; R42 Dizziness and giddiness; R53.83 Other fatigue; R55 Syncope and collapse; R60.0 Localized edema; R94.31 Abnormal electrocardiogram [ECG] [EKG]; Z79.4 Long term (current) use of insulin; Z79.899 Other long term (current) drug therapy
CPT/HCPCS: 36415; 80048; 80061; 80076; 83735; 84439; 84443; 85025

== ENCOUNTER 2024-04-17 12:43 | Outpatient (CLI) | payer MEDICARE, SELFPAY ==
[2024-04-17 13:04] LABS: Basophils % 0.2 % (0.1-2.0); Eosinophils # 0.1 K/mm3 (0.0-0.4); Eosinophils % 1.5 % (0.1-12.0); Hemoglobin 13.5 g/dL (14.1-18.0); Lymphocytes # 1.3 K/mm3 (0.7-4.5); Lymphocytes % 19.5 % (10-50); Mean Corpuscular HGB Conc 32.9 g/dL (31.8-35.4); Mean Corpuscular Hemoglobin 29.1 pg (27.0-31.2); Mean Corpuscular Volume 88.4 fl (80-94); Monocytes # 0.6 K/mm3 (0.1-1.0); Monocytes % 8.6 % (1.7-9.3); Neutrophils # 4.6 K/mm3 (1.8-7.8); Neutrophils % 69.6 % (37.0-80.0); Platelet Count 190 K/mm3 (142-424); Red Blood Count 4.64 M/mm3 (4.60-6.20); Red Cell Distribution Width 12.8 % (11.5-17.5); White Blood Count 6.6 K/mm3 (4.8-10.8)
[2024-04-17 13:24] LABS: Albumin Level 4.4 g/dl (3.5-5.0); Chloride 101 mmol/L (98-107)
[2024-04-17 13:25] LABS: Potassium 4.2 mmoL/L (3.5-5.1); Sodium 140 mmol/L (136-145)
[2024-04-17 13:27] LABS: Alanine Aminotransferase 25 U/L (12-78); Anion Gap 12.2 mEq/L (5-15); Aspartate Amino Transferase 24 U/L (17-59); Bilirubin,Unconjugated 0.8 mg/dL (0.0-1.1); Blood Urea Nitrogen 25 mg/dl (9-20); Carbon Dioxide 31 mmol/L (22.0-30.0); Cholesterol 179 mg/dl (140-200); Estimated Glomerular Filt Rate 72 ml/min (>60); GFR (African American) 87 ML/MIN (>60); Triglycerides 225 mg/dl (30-150); VLDL Cholesterol 45 mg/dL (0-40)
[2024-04-17 13:28] LABS: Alkaline Phosphatase 70 U/L (38-126); Bilirubin,Indirect 0.8 mg/dL (0.0-0.9); Bilirubin,Total 0.8 mg/dl (0.2-1.3); Calcium 9.6 mg/dl (8.4-10.2); Chol/HDL Ratio 4.3 (1-3.5); Glucose 230 mg/dl (74-100); HDL Cholesterol 42 mg/dl (40-60)
[2024-04-17 13:38] LABS: Direct LDL Cholesterol 91.01 mg/dL (100-129)
[2024-04-17 13:59] LABS: Thyroid Stimulating Hormone 2.01 uIU/mL (0.465-4.68)
[2024-04-17 14:20] LABS: Hemoglobin A1C 7.1 % (4.0-6.0)
== END 2024-04-17 23:59 | disposition home or self-care (01) ==
PROVIDERS: PCP Emergency Medicine; Visit Provider Physician Assistant
DX: R06.09 Other forms of dyspnea (principal); R53.83 Other fatigue; E78.2 Mixed hyperlipidemia; I10 Essential (primary) hypertension; E11.9 Type 2 diabetes mellitus without complications; Z79.4 Long term (current) use of insulin
CPT/HCPCS: 36415; 80048; 80061; 80076; 83036; 84439; 84443; 85025

== ENCOUNTER 2024-09-08 10:05 | Outpatient (CLI) | payer MEDICARE, SELFPAY ==
--- OUTSIDE RECORDS SUMMARY | 2024-09-08 10:08 | XMS_ITS | Continuity of Care Document ---
Author Organization [place] - [facility] Address [address] [address] Care Team Providers Care Cabana Attendant Name Role Phone BETHISAMARNeetaYARIEL Primary Care Provider Assessment No assessment recorded. Plan of Treatment Reminders Order Date Submit Date Provider Last Modified By Organization Details Last Modified Time Details Appointments OV EST 15 2024 11:00A Song Kidd Jr, MD Not available Not available Not available Lab lipid panel, serum 2024 025 [facility] [address] [place], [address], 08/07/2024 17:43:17 CMP, serum or plasma 2024 025 [facility]), [address] [place], [address], 08/07/2024 17:43:15 CBC w/ auto diff 2024 025 [facility]), [address] [place], [address], 08/07/2024 16:54:56 TSH, serum or plasma 2024 025 [facility] ([facility]), [address] [place], [address], 08/07/2024 17:43:13 vitamin D, 25-hydrox y, total, serum 2024 025 [facility] (Laboratory), [address] [place], [address], 08/07/2024 15:05:26 hemoglobi n A1C/hemog lobin total, QN, blood 2024 025 [facility] (Laboratory), [address] [place], [address], 08/14/2024 07:47:13 hemoglobi n A1c + average glucose, QN, blood 2024 025 [facility] (Laboratory), [address] [place], [address], 08/14/2024 07:47:13 Referral [facility] referral 2024 025 [facility] Dede Urrutia [facility], [address] [place], [address], 08/14/2024 07:47:07 Procedures None recorded. Surgeries None recorded. Imaging XR, knee, 3 view [address] (Scheduling), [address] [place], [address], 09/04/2024 09:05:54 CT, abdomen + pelvis, w/o contrast [address] [place] [address] (Scheduling), [address] [place], [address], 09/04/2024 09:05:54 Medication Orders diclofena c 3 % topical gel 2024 025 [facility], [address] [place] [address], [id number], 08/07/2024 15:13:25 Seroquel 100 mg tablet 2024 025 [facility], [address] [place] [address], [id number], 08/08/2024 14:14:02 Linzess 145 mcg capsule 2024 025 [facility], [address] [place] [address], [id number], 08/08/2024 14:14:03 Patient TargetsNo targets recorded. Patient InstructionsNo instructions recorded. Reason for Referral Behavioral Health Referral f or Mixed anxiety and depressive disorder Referring Physician: Yariel Person, Family Medicine, Encounter Date: 08/07/2024 Problems Name Problem SNOMED Code Status Onset Date Resolution Date Notes Provider Name and Address Organization Details Recorded Time Mixed anxiety and depressive disorder 453965306 Active Yari Pardini null, [place] - [facility] - [place] & [place] 3 08:49:12 Degeneration of lumbar intervertebra l disc 45093931 Active Not Available [facility] 3 08:28:09 Insomnia 035323713 Active Yari Pardini null, [place] [facility] [place] & [place] 3 08:49:02 Essential hypertension 58649779 Active Yari Pardini null[place] [facility] [place] & [place] 3 08:48:59 Orthostatic hypotension 38085285 Active Not Available [facility] 3 08:28:09 Lumbar radiculopathy 737234395 Active Not Available [facility] 3 08:28:08 Benign prostatic hyperplasia 571298972 Active Yari Pardini null, [place] - [facility] - [place] & [place] 3 08:48:50 Type 2 diabetes mellitus without complication 273719716 Active Not Available [facility] 3 08:28:09 Spinal stenosis of lumbar region 60909366 Active Not Available [facility] 3 08:28:08 Type 2 diabetes mellitus 36860194 Active Yari Pardini null, [place] - [facility] - [place] & [place] 3 08:49:41 Chronic diarrhea 051246804 Active Not Available [facility] 3 08:28:09 Mixed hyperlipidemi a 062438088 Active Yari [place]ard[place] [facility] [place] 3 08:49:19 Hypersomnia 52137877 Active Not Available [facility] 3 08:28:09 Long-term current use of insulin 025734296 Active Yari [place]ard[place] [facility] & [place] 3 08:49:05 Disorder of nervous system due to type 2 diabetes mellitus 919411429 Active Yari Pardini null[place] - [facility] [place] & [place] 3 08:48:55 Dizziness 421772959 Active 2022 DO Stephania Wiseman , [place], [address] , [place] - [facility] & [place] 3 09:03:52 Syncope 872687594 Active 2022 [place], [address] , [place] - [facility] & [place] 3 09:05:30 Problem Notes None recorded. Procedures Surgical History Date Name Laterality Status Provider Name and Address Organization Details Recorded Time 07/01/19 25 Bladder Irrigation completed Fransico Kidd Jr, MD [address] [place] [address], [address], [address], [place] [facility] & [place] 07/26/2024 13:01:58 06/03/19 25 Bladder Irrigation completed Fransico Kidd Jr, MD [address] [place] [address], [address], [address], [place] - [facility] & [place] 06/02/2024 15:32:44 05/30/19 25 Bladder Irrigation completed Fransico Kidd Jr, MD [address] [place] [address], [address], [place], [address], [place] [facility] & [place] 05/29/2024 13:01:22 03/10/19 25 Cystoscopy-Male completed Fransico Kidd Jr, MD [address] [place] [address], [address], [address], [place] - [facility] - [place] & [place] 03/10/2024 13:15:48 07/27/19 24 Nail debridement (6-10) completed Leslie IBARRA - [facility] - [place] & [place] 07/27/2023 10:42:36 12/30/19 23 cardiac catheterization completed Ирина IBARRA - [facility] - [place] & [place] 10/01/2023 14:35:36 03/01/19 incision and drainage completed Ирина IBARRA - [facility] - [place] & [place] 10/01/2023 14:34:20 Cholecystectomy completed Ирина IBARRA - [facility] - [place] & [place] 10/01/2023 14:33:48 Imaging Results None recorded. Procedure Notes None recorded. Medical Equipment None Reported. Allergies No known drug allergies Medications Name Sig Start Date Stop Date Status Note LastModified by Organization Details LastModified Time losartan 50 mg tablet Take 1 tablet every day by oral route as directed. 10/27 completed Not Available Not Available Not Available Anti-Diarrh eal (loperamide ) 2 mg tablet take 1 tab 3 to 4 times per day As needed after 1st loose stool and 1 tablet after each subsequen t bowel movement; do not exceed 8 tabs a day active Not Available Not Available No t Available methocarbam ol 500 mg tablet Take 4 times a day by oral route. 11/09 completed Not Available Not Available Not Available diclofenac 3 % topical gel active Not Available Not Available Not Available atorvastati n 20 mg tablet 2023 active Not Available Not Available Not Avai lable irbesartan 150 mg-hydrochl orothiazide 12.5 mg tablet TAKE 1 TABLET BY MOUTH EVERY DAY active Not Available Not Available No t Available alprazolam 1 mg tablet Take 1 tablet every day by oral route for 30 days. 08/16 completed Not Available Not Available Not Available metoprolol succinate ER 50 mg tablet,exte nded release 24 hr Take 1 tablet every day by oral route. active Not Available Not Available No t Available hydrocodone 5 mg-acetamin ophen 325 mg tablet TAKE 1 TABLET BY MOUTH TWICE A DAY 10/13 completed Not Available Not Available Not Available enalapril 5 mg-hydrochl orothiazide 12.5 mg tablet Take 1 tablet every day by oral route. active Not Available Not Available No t Available lisinopril 20 mg tablet Take 1 tablet every day by oral route for 90 days. 03/04 completed Not Available Not Available Not Available Medrol (Dion) 4 mg tablets in a dose pack Take 1 dose pk by oral route. 03/04 completed Not Available Not Available Not Available methylpredn isolone 4 mg tablet 03/04 completed Not Available Not Available Not Available metronidazo le 500 mg tablet Take 1 tablet every 8 hours by oral route. active Not Available Not Available No t Available clopidogrel 75 mg tablet Take 1 tablet by oral route for 30 days. 05/30 completed Not Available Not Available Not Available ciprofloxac in 500 mg tablet TAKE 1 TABLET BY MOUTH EVERY 12 HOURS FOR 7 DAYS 08/07 completed Not Available Not Available Not Available sulfamethox azole 800 mg-trimetho prim 160 mg tablet TAKE ONE TABLET TWICE DAILY 08/07 completed Not Available Not Available Not Available quetiapine 100 mg tablet Take 1 tablet every day by oral route at bedtime for 30 days. active Not Available Not Available No t Available amitriptyli ne 50 mg tablet TAKE 1 TABLET BY MOUTH EVERY DAY 08/31 completed Not Available Not Available Not Available alprazolam 0.5 mg tablet Take 1 tablet every day by oral route for 30 days. active Not Available Not Available No t Available tamsulosin 0.4 mg capsule TAKE 1 CAPSULE BY MOUTH EVERY DAY active Not Available Not Available No t Available trazodone 100 mg tablet TAKE 1 TABLET BY MOUTH AT BEDTIME for 30 01/06 completed Not Available Not Available Not Available meclizine 25 mg tablet Take 1 tablet 3 times a day by oral route as needed for 20 days. 11/09 completed Not Available Not Available Not Available amlodipine 10 mg tablet Take 1 tablet every day by oral route for 30 days. 04/14 completed Not Available Not Available Not Available hydrocodone 7.5 mg-acetamin ophen 325 mg tablet Take 1 tablet every day by oral route. active Not Available Not Available No t Available cephalexin 500 mg capsule take 1 capsule ORAL route every 8 hours for 7 days 08/07 completed Not Available Not Available Not Available metformin 1,000 mg tablet Take 1 tablet twice a day by oral route for 90 days. active Not Available Not Available No t Available clotrimazol e 1 % topical solution APPLY TO TOENAILS DAILY UNTIL ABNORMAL APPEARANC E RESOLVED 08/31 completed Not Available Not Available Not Available aspirin 81 mg chewable tablet Chew 1 tablet every day by oral route as directed. 03/04 completed Not Available Not Available Not Available hydroxyzine HCl 25 mg tablet take 1 tablet ORAL route every 6 hours As needed active Not Available Not Available No t Available zolpidem 5 mg tablet TAKE 1 TABLET BY MOUTH EVERY DAY (LAST FILLED 10/14) 03/14 completed Not Available Not Available Not Available furosemide 20 mg tablet Take 1 tablet every day by oral route for 90 days. active Not Available Not Available No t Available metoprolol succinate ER 25 mg tablet,exte nded release 24 hr 04/14 completed Not Available Not Available Not Available levofloxaci n 500 mg tablet TAKE 1 TABLET BY MOUTH EVERY 24 HOURS FOR 5 DAYS 08/07 completed Not Available Not Available Not Available zolpidem 10 mg tablet TAKE 1 TABLET BY MOUTH AT BEDTIME NEEDED active Not Available Not Available No t Available cefdinir 300 mg capsule Take 1 capsule every 12 hours by oral route for 7 days. 2024 active Not Available Not Available Not Avai lable terazosin 10 mg capsule TAKE 1 CAPSULE BY MOUTH AT BEDTIME 01/06 completed Not Available Not Available Not Available dicyclomine 10 mg capsule take 1 capsule ORAL route every 6 hours As needed active Not Available Not Available No t Available finasteride 5 mg tablet TAKE 1 TABLET BY MOUTH AT BEDTIME 2024 active Not Available Not Available Not Avai lable Laxative (bisacodyl) 5 mg tablet,tennille yed release TAKE 2 TABLETS BY MOUTH EVERY DAY NEEDED active Not Available Not Available No t Available escitalopra m 10 mg tablet 1 tablet Orally Once a day for 30 day(s) 08/04 completed Not Available Not Available Not Available escitalopra m 20 mg tablet TAKE 1 TABLET BY MOUTH EVERY DAY 01/06 completed Not Available Not Available Not Available BD Ultra-Fine Mini Pen Needle 31 gauge x 05/14 active Not Available Not Available Not Available solifenacin 10 mg tablet Take 1 tablet every day by oral route for 90 days. 2024 active Not Available Not Available Not Avai lable losartan 100 mg-hydrochl orothiazide 12.5 mg tablet TAKE 1 TABLET BY MOUTH EVERY DAY 03/14 completed Not Available Not Available Not Available quetiapine 50 mg tablet TAKE 1 TABLET BY MOUTH EVERY DAY AT BEDTIME FOR 30 DAYS 05/30 completed Not Available Not Available Not Available Lantus Solostar U-100 Insulin 100 unit/mL (3 mL) subcutaneou s pen INJECT 30 UNITS UNDER THE SKIN EVERY DAY active Not Available Not Available No t Available Voltaren 1 % topical gel as directed Externall y daily for 30 DAYS 01/06 completed Not Available Not Available Not Available Linzess 145 mcg capsule Take 1 capsule every day by oral route. active Not Available Not Available No t Available Eliquis 5 mg tablet TAKE 1 TABLET TWICE DAILY DIRECTED 2024 active Not Available Not Available Not Corrina mendez True Metrix Level 1 solution 11/09 completed Not Available Not Available Not Available Droplet Pen Needle 32 gauge x active Not Available Not Available Not Available Accu-Chek Guide test strips USE TO TEST BLOOD SUGARS TWICE DAILY (NOT COVERED) active Not Available Not Available No t Available OneTouch Ultra2 Meter use machine to test sugars twice daily 2022 active Not Available Not Available Not Avcrys mendez OneTouch Delica Plus Lancet 33 gauge TEST DIRECTED active Not Available Not Available No t Available Vitals Date Recorded Body height Body mass index (BMI) Body weight Body temperature Oxygen saturation Oxygen saturation in Arterial blood by Pulse oximetry Heart rate Respiratory rate Systolic And Diastolic Provider Name and Address Organization Details Last Updated DateTime 5 165.1 cm 33.9 kg/m2 18082.8 4 g 97.2 [degF] 98 % 98 % 80 /min 16 /min 143/79 mm[Hg] Yari [place] - [facility] - [place] & [place] 5 14:34:21 Date Recorded Body height Body mass index (BMI) Body weight Body temperature Provider Name and Address Organization Details Last Updated DateTime 08/07/2024 165.1 cm 36.8 kg/m2 997544.91 g 98.5 [degF] Yun [place] - [facility] & [place] 08/07/2024 11:46:12 Social History Question Answer Notes LastModified by Organizat ion Details LastModified Time Tobacco Smoking Status Never Smoker Not Available [facility] 11/10/2021 09:52:01 Do You Have An Advance Directive? No Information not available 05/05/2022 Are You Blind Or Do You Have Difficulty Seeing? Yes Information not available 05/05/2022 What Is Your Level Of Caffeine Consumption? Occasional [email or web address] Information not available 03/04/2023 In The 14 Days Before Symptom Onset, Have You Had Close Contact With A Laboratory-confi rmed COVID-19 While That Case Was Ill? No Information not available 03/14/2024 In The 14 Days Before Symptom Onset, Have You Had Close Contact With A Person Who Is Under Investigation For COVID-19 While That Person Was Ill? No Information not available 03/14/2024 Have You Been To An Area Known To Be High Risk For COVID-19? No Information not available 03/14/2024 Are You Deaf Or Do You Have Serious Difficulty Hearing? No Information not available 03/14/2024 Have You Processed Blood Or Body Fluids From An Ebola Virus Disease Patient Without Appropriate PPE? No Information not available 03/14/2024 Do You Reside In Or Have You Traveled To An Area Where Ebola Virus Transmission Is Active? No Information not available 03/14/2024 Have There Been Any Changes To Your Family Or Social Situation? No Information not available 03/14/2024 What Is The Fluoride Status Of Your Home? Unknown Information not available 03/14/2024 Are There Any Guns Present In Your Home? No Information not available 03/14/2024 Have You Recently Or Are You Planning To Travel To An Area With Zika Virus? No Information not available 03/14/2024 Do You Use Insect Repellent Routinely? Yes Information not available 03/14/2024 Do You Feel Safe At Home? Yes Information not available 03/14/2024 What Was The Date Of Your Most Recent Tobacco Screening? 05/31/2023 [email or web address] Information not available 05/31/2023 Do You Have Any Pets? No Information not available 03/14/2024 What Is Your Relationship Status? Lives Alone In Apartment [email or web address] Information not available 03/04/2023 Do You Use Your Seat Belt Or Car Seat Routinely? Yes Information not available 03/14/2024 Are You Sexually Active? No Information not available 03/14/2024 Do You Have Smoke And Carbon Monoxide Detectors In Your Home? Yes Information not available 03/14/2024 Are You Passively Exposed To Smoke? No Information not available 05/05/2022 How Much Tobacco Do You Smoke? No Information not available 01/06/2023 Do You Use Sunscreen Routinely? Yes Information not available 03/14/2024 Do You Have Difficulty Walking Or Climbing Stairs? Yes Information not available 03/14/2024 Are You Currently In School? No 6th Grade [email or web address] Information not available 03/04/2023 Sex: Unknown Functional Status Question Answer Note LastModified by Organizat ion Details LastModified Time Do you use any illicit or recreational drugs? No Information not available 05/05/2022 Do you or have you ever used smokeless tobacco? Never used smokeless tobacco Information not available 01/06/2023 Are you currently employed? No retired [email or web address] Information not available 03/04/2023 Do you have transportation difficulties? No Information not available 03/14/2024 Are you able to walk? YESASSIST Information not available 03/14/2024 Do you have difficulty doing errands alone? No Information not available 03/14/2024 Are you able to care for yourself? Yes Information n ot available 03/14/2024 Do you have difficulty dressing or bathing? No Information not available 03/14/2024 What is your exercise level? Occasional Information not available 05/05/2022 Mental Status Question Answer Note LastModified by Organizat ion Details LastModified Time Do you feel stressed (tense, restless, nervous, or anxious, or unable to sleep at night)? [id number] Information not available 03/14/2024 Do you have difficulty concentrating, remembering or making decisions? No Information no t available 03/14/2024 Family History Relationship Description Onset Age of this Age Resolved Age Notes LastModified by Organization Details LastModified Time Daughter Diabetes mellitus [email or web address] Not available 2023 14:33:15 Father Malignant neoplastic disease [email or web address] Not available 2023 14:33:32 Medical History Condition Response Diabetes Y Anxiety Disorder Y Obesity Y Hyperlipidemia Y Heart Disease Y Hypertension Y Obstructive Sleep Apnea Y Immunizations Vaccine Type Date Status Note Provider Nam e and Address Organization Details Recorded Time COVID-19, mRNA, LNP-S, PF, 100 mcg/0.5mL dose or 50 mcg/0.25mL dose 06/21/2020 completed Not Available [facility] 08:28:09 Past Encounters Encounter ID Performer Location Encounter Start Date Encounter Closed Date Diagnosis/Indication Diagnosis SNOMED-CT Code Diagnosis ICD10 Code Diagnosis Note [id number] Yariel Person MD [facility] [address] [address] 08/07/2024 14:17:57 08/07/2024 15:02:26 Disorder of nervous system due to type 2 diabetes mellitus 817413757 E11.49 will obtain lab work today. Essential hypertension 68601574 I10 stable with current medication . Insomnia 650613482 F51.0 9 will attempt to treat patient's insomnia with Seroquel. Mixed anxi ety and depressive disorder 014781361 F41.8 Will refer patient to behavioral health. Mixed hyperlipidemia 267 805663 E78.2 Will obtain lab work today. Type 2 maximino betes mellitus 15371021 E11.65 Abdominal discomfort 433 45005 R10.9 1st of all, will schedule patient for a screening colonoscop y. Depending on findings we will decide on further action. Pain of knee region 1003 336803 M25.561 G89.29 diclofenac gel [id number] Fransico Kidd Jr, MD [facility] [address] [place] [address] 08/07/2024 11:21:07 08/07/2024 13:10:23 Overactive urinary bladder 729045375 N32.81 Health Concerns Section Related Observation LastModified by Organization Detai ls LastModified Time None Recorded Concern Status LastModified by Organization Details LastModified Time None Recorded Payers Encounter Date Sequence Insurance Name Policy Number Policy Leon Covered Member ID Leon Member ID Guarantor Name 08/07/2024 1 [employer] (MEDICARE REPLACEMENT/ ADVANTAGE - PPO) [employer] [id number] [employer] Notes Date Note Type Note Provider Name and Address Organization Details Recorded Time 08/07/2024 text/html patient presents today complaining of several issues they include anxiety/ depression, right knee pain, constipation, depression insomnia. Yariel Person MD [address] [place] [address], [id number] & [place] 08/07/2024 15:44:26
--- OUTSIDE RECORDS SUMMARY | 2024-09-08 10:08 | XMS_ITS | Data Portability ---
Author Organization [place] - Kevin uriarte MD, [facility], [place] Office Address [address] [place] [address] [address] [place] [address] Care Team Providers Care Agribusiness Professor Name Role Phone MAYRA WISE Primary Care Provider [phone] MAYRA WISE Referring Provider Assessment No assessment recorded. Plan of Treatment Reminders Order Date Submit Date Provider Last Modified By Organization Details Last Modified Time Details Appointments None record ed. Lab None record ed. Referral None record ed. Procedures None record ed. Surgeries None record ed. Imaging None record ed. Medication Orders None record ed. Patient TargetsNo targets recorded. Patient Instructions Encounter Date Encounter Id Patient Instructions Last Modified By Organization Details Last Modified Time 09/29/2019 [id number] 74 yom with a one year hx of balance problemms. Will schedule a carotid ultrasound. Discussed vestibular testing. brooks Not available 09/29/2019 13:08:15 Reason for Referral None Reported. Results Created Date Observation Date Name Description Value Unit Range Abnormal Flag Note LastModifiedBy Organization Detail LastModifiedTime 10/05/19 20 10/05/2019 US, [facility] arter y No observ ation record ed. [email or web address] [facility] [address], [place], [address], 10/06/2019 10:20:59 Result Notes None recorded. Problems Name Problem SNOMED Code Status Onset Date Resolution Date Notes Provider Name and Address Organization Details Recorded Time Diabetes mellitus 28232313 Active 020 Ann Veronica null, [place] - Kevin Granados MD, [facility] 0 12:01:36 Problem Notes None recorded. Procedures Surgical History Date Name Laterality Status Provider Name and Address Organization Details Recorded Time endoscopic laser surgery on colon completed Ann Granados MD, [facility] 09/29/2019 12:01:56 Imaging Results None recorded. Procedure Notes None recorded. Medical Equipment None Reported. Allergies No known drug allergies Medications Name Sig Start Date Stop Date Status Note LastModified by Organization Details LastModified Time pioglitazone 15 mg tablet 2019 completed Not Available Not Available Not Available atorvastatin 20 mg tablet active Not Available Not Available Not Available hydrocodone 5 mg-acetaminoph en 325 mg tablet 2019 completed Not Available Not Available Not Available Lantus U-100 Insulin 100 unit/mL subcutaneous solution active Not Available Not Available Not Available insulin syringe U-100 with needle 1 mL 29 gauge x 09/13 completed Not Available Not Available Not Available hydrocodone 7.5 mg-acetaminoph en 325 mg tablet active Not Available Not Available Not Available metformin 1,000 mg tablet active Not Available Not Available Not Available lisinopril 10 mg tablet active Not Available Not Available No t Available terazosin 10 mg capsule active Not Available Not Available N ot Available finasteride 5 mg tablet active Not Available Not Available No t Available Contour Next Test Strips 2019 completed Not Available Not Available Not Available Vitals Date Recorded Body height Body mass index (BMI) Body weight Systolic And Diastolic Provider Name and Address Organization Details Last Updated DateTime 09/29/2019 162.56 cm 35.5 kg/m2 25771.62 g 140/76 mm[Hg] Ann Granados MD, [facility] 09/29/2019 12:00:33 Social History Question Answer Notes LastModified by Organizat ion Details LastModified Time Tobacco Smoking Status Never Smoker Ann caal, [place] Granados MD, [facility] 09/29/2019 12:01:47 Which Illicit Or Recreational Drugs Have You Used? None Information not available 09/29/2019 How Much Tobacco Do You Smoke? No Information not available 09/29/2019 Sex: Unknown Functional Status Question Answer Note LastModified by Organization D etails LastModified Time What is your level of alcohol consumption? None Information not available 09/29/2019 Mental Status None recorded. Family History Nothing Reported. Medical History Condition Response Diabetes Y Past Encounters Encounter ID Performer Location Encounter Start Date Encounter Closed Date Diagnosis/Indication Diagnosis SNOMED-CT Code Diagnosis ICD10 Code Diagnosis Note [id number] Kevin Granados MD Main Office [address] [facility] [place] [address] 09/29/2019 11:19:19 09/29/2019 12:23:52 Vertigo 249828660 R42 Health Concerns Section Related Observation LastModified by Organization Detai ls LastModified Time None Recorded Concern Status LastModified by Organization Details LastModified Time None Recorded Advance Directives Directive None Recorded Payers Insurance Date Sequence Insurance Name Policy Number Policy Leon Covered Member ID Leon Member ID Guarantor Name 09/29/2019 1 [facility]: [employer] (MEDICARE REPLACEMENT PPO) [id number] Joe Mart [id number] Joe Mart Notes Date Note Type Note Provider Name and Address Organization Details Recorded Time 09/29/2019 text/html 74 yom with a one year hx of feeling off balance. He has difficulty ambulating and has to hold on to maintain balance. No hx of rotatory vertigo. No new hearing loss, fullness or tinnitus. He has seen Dr. Betancur and a MRI scan fo the brain was normal. He is diabetic. No hx of tobacco use. Kevin Granados MD [address] [place] [address], [address], [facility] [place] - Kevin Granados MD, [facility] 09/29/2019 13:08:42
--- OUTSIDE RECORDS SUMMARY | 2024-09-08 10:08 | XMS_ITS | Continuity of Care Document ---
Author Organization [facility] & [place], [facility]- [facility] Address [address] [place] [address] Care Team Providers Care Safety Glass Installer Name Role Phone YARIEL SPAIN Primary Care Provider [phone] Assessment No assessment recorded. Plan of Treatment Reminders Order Date Submit Date Provider Last Modified By Organization Details Last Modified Time Details Appointments OV EST 15 2024 11:00A M Fransico Kidd Jr, MD Not available Not available Not available Lab None recorded. Referral gastroent erologist referral 2024 025 RILEY Sánchez MD, [address] [place] [address] [place], [address], 08/21/2024 08:34:40 Procedures None recorded. Surgeries None recorded. Imaging None recorded. Medication Orders metronida zole 500 mg tablet 2024 025 [facility], [address] [place] [address], [id number], 08/17/2024 16:30:58 Patient TargetsNo targets recorded. Patient InstructionsNo instructions recorded. Reason for Referral Multiple Resaw Operator Referral for Colitis Referring Physician: Yariel Spain [facility], Encounter Date: 08/16/2024 Problems Name Problem SNOMED Code Status Onset Date Resolution Date Notes Provider Name and Address Organization Details Recorded Time Mixed anxiety and depressive disorder 843267901 Active Yarizafar caal, [facility] & [place] 08:49:12 Degeneration of lumbar intervertebra l disc 47925227 Active Not Available [facility] 3 08:28:09 Insomnia 155584192 Active Yari Suggsi null, [place] - [facility] - [place] & [place] 3 08:49:02 Essential hypertension 29739191 Active Yair Gallodini null, [place] [facility] [place] & [place] 3 08:48:59 Orthostatic hypotension 72525796 Active Not Available [facility] 3 08:28:09 Lumbar radiculopathy 860771933 Active Not Available [facility] 3 08:28:08 Benign prostatic hyperplasia 875466749 Active Yari Gallodini null, [place] - [facility] [place] & [place] 3 08:48:50 Type 2 diabetes mellitus without complication 838714407 Active Not Available [facility] 3 08:28:09 Spinal stenosis of lumbar region 14050474 Active Not Available [facility] 3 08:28:08 Type 2 diabetes mellitus 59129677 Active Yari Sabinodini null, [place] [facility] [place] & [place] 3 08:49:41 Chronic diarrhea 048855546 Active Not Available [facility] 3 08:28:09 Mixed hyperlipidemi a 557820784 Active Yari Sabinodini null, [place] [facility] [place] & [place] 3 08:49:19 Hypersomnia 41691374 Active Not Available [facility] 3 08:28:09 Long-term current use of insulin 379091049 Active Yari Pardini null, [place] [facility] [place] & [place] 3 08:49:05 Disorder of nervous system due to type 2 diabetes mellitus 613915714 Active Yari Pardini null, [place] [facility] [place] & [place] 3 08:48:55 Dizziness 725517945 Active 2022 Barbra Chua, DO [address] [facility], [place], [address] , [place] - [facility] - [place] & [place] 3 09:03:52 Syncope 493300783 Active 2022 Barbra Chua, DO [address] [facility], [place], [address] , [place] - [facility] - [place] & [place] 3 09:05:30 Problem Notes None recorded. Procedures Surgical History Date Name Laterality Status Provider Name and Address Organization Details Recorded Time 07/01/19 25 Bladder Irrigation completed Fransico Kidd Jr, MD [address] [place] [address], [address], [place], [address], [place] [facility] [place] & [place] 07/26/2024 13:01:58 06/03/19 25 Bladder Irrigation completed Fransico Kidd Jr, MD [address] [place] [address], [address], [place], [address], [place] [facility] [place] 06/02/2024 15:32:44 05/30/19 25 Bladder Irrigation completed Fransico Kidd Jr, MD [address] [place] [address], [address], [place], [address], [place] [facility] [place] 05/29/2024 13:01:22 03/10/19 25 Cystoscopy-Male completed Fransico Kidd Jr, MD [address] [place] [address], [address], [place], [address], [place] [facility] [place] 03/10/2024 13:15:48 07/27/19 24 Nail debridement (6-10) completed Leslie John [place] - [facility] - [place] & [place] 07/27/2023 10:42:36 12/30/19 23 cardiac catheterization completed Ирина Marte [place] [facility] [place] & [place] 10/01/2023 14:35:36 03/01/19 01 incision and drainage completed Ирина Marte [place] [facility] [place] & [place] 10/01/2023 14:34:20 Cholecystectomy completed Ирина Marte [place] [facility] [place] & [place] 10/01/2023 14:33:48 Imaging Results None recorded. Procedure [...] Not Available Not Available Not Avai lable True Metrix Level 1 solution 11/09 completed [...] 2022 active Not Available Not Available Not Avai lable OneTouch Delica Plus Lancet 33 gauge TEST DIRECTED active Not Available Not Available No t Available Vitals Date Recorded Body height Body mass index (BMI) Body weight Body temperature Oxygen saturation Oxygen saturation in Arterial blood by Pulse oximetry Heart rate Respiratory rate Systolic And Diastolic Provider Name and Address Organization Details Last Updated DateTime 5 165.1 cm 33.4 kg/m2 29078.0 7 g 97.3 [degF] 96 % 96 % 74 /min 14 /min 148/77 mm[Hg] Yari Toledo [facility] & [place] 5 15:30:36 Social History Question Answer Notes LastModified by Organizat ion Details LastModified Time Tobacco Smoking Status Never Smoker Not Available [facility] 11/10/2021 09:52:01 Do You Have An Advance Directive? No Information not available 05/05/2022 Are You Blind Or Do You Have Difficulty Seeing? Yes Information not available 05/05/2022 What Is Your Level Of Caffeine Consumption? Occasional [email or web address] Information not available 03/04/2023 In The 14 [...] Of Your Most Recent Tobacco Screening? 05/31/2023 [email or web address] Information not available 05/31/2023 Do You Have Any Pets? No Information not available 03/14/2024 What Is Your Relationship Status? Lives Alone In Apartment [email or web address] Information not available 03/04/2023 Do You Use [...] You Currently In School? No 6th Grade [email or web address] Information not available 03/04/2023 Sex: Unknown Functional Status Question Answer Note LastModified by Organizat ion Details LastModified Time Do you use any illicit or recreational drugs? No Information not available 05/05/2022 Do you or have you ever used smokeless tobacco? Never used smokeless tobacco Information not available 01/06/2023 Are you currently employed? No retired [email or web address] Information not available 03/04/2023 Do you have [...] anxious, or unable to sleep at night)? [id number] Information not available 03/14/2024 Do you have difficulty concentrating, remembering or making decisions? No Information no t available 03/14/2024 Family History Relationship Description Onset Age of this Age Resolved Age Notes LastModified by Organization Details LastModified Time Daughter Diabetes mellitus [email or web address] Not available 2023 14:33:15 Father Malignant neoplastic disease [email or web address] Not available 2023 14:33:32 Medical History Condition Response Anxiety Disorder Y Diabetes Y Obesity Y Hyperlipidemia Y Heart Disease Y Obstructive Sleep Apnea Y Hypertension Y Immunizations Vaccine Type Date Status Note Provider Nam e and Address Organization Details Recorded Time COVID-19, mRNA, LNP-S, PF, 100 mcg/0.5mL dose or 50 mcg/0.25mL dose 06/21/2020 completed Not Available [facility] 08:28:09 Past Encounters Encounter ID Performer Location Encounter Start Date Encounter Closed Date Diagnosis/Indication Diagnosis SNOMED-CT Code Diagnosis ICD10 Code Diagnosis Note [id number] Yariel Spain MD [facility] [address] [place], [place] [address] 08/07/2024 14:17:57 08/07/2024 15:02:26 Disorder of nervous system due to type 2 diabetes mellitus 275255660 E11.49 will obtain lab work today. Essential hypertension 31720438 I10 stable with current medication . Insomnia 725911515 F51.0 9 will attempt to treat patient's insomnia with Seroquel. Mixed anxi ety and depressive disorder 574928383 F41.8 Will refer patient to behavioral health. Mixed hyperlipidemia 267 806457 E78.2 Will obtain lab work today. Type 2 maximino betes mellitus 84441524 E11.65 Abdominal discomfort 433 78999 R10.9 1st of all, will schedule patient for a screening colonoscop y. Depending on findings we will decide on further action. Pain of knee region 1003 582980 M25.561 G89.29 diclofenac gel [id number] Fransico Kidd Jr, MD [facility] [address] [place] [address] 08/07/2024 11:21:07 08/07/2024 13:10:23 Overactive urinary bladder 378924462 N32.81 [id number] Yariel Spain MD [address] [place] [address] 08/16/2024 15:29:48 08/16/2024 15:44:15 Colitis 61015709 K52.9 Health Concerns Section Related Observation LastModified by Organization Detai ls LastModified Time None Recorded Concern Status LastModified by Organization Details LastModified Time None Recorded Payers Encounter Date Sequence Insurance Name Policy Number Policy Leon Covered Member ID Leon Member ID Guarantor Name 08/16/2024 1 [employer] (MEDICARE REPLACEMENT/ ADVANTAGE - PPO) Joe Mart [id number] Joe Mart Notes Date Note Type Note Provider Name and Address Organization Details Recorded Time 08/16/2024 text/html patient presents today for hospital follow-up. He was seen in the hospital and diagnosed in the emergency department with colitis. Patient was sent home with a brat diet and Imodium. He is also supposed to be on cefdinir. He states that his pain is a lot better he says that the diet has helped him. Yariel Spain MD [address] [place] [address] [place], [address], [facility] - [place] & [place] 08/16/2024 15:57:04
--- OUTSIDE RECORDS SUMMARY | 2024-09-08 10:08 | XMS_ITS | Data Portability ---
Author Organization [place] - 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 Plan of Treatment Reminders Order Date Submit Date Provider Last Modified By Organization Details Last Modified Time Details Appointments OV EST 15 2024 11:00A M Fransico Kidd Jr, MD Not available Not available Not available Lab lipid panel, serum 2024 025 [facility] (Laboratory), [address] [place], [address], 08/07/2024 17:43:17 CMP, serum or plasma 2024 025 [facility] (Laboratory), [address] [place], [address], 08/07/2024 17:43:15 CBC w/ auto diff 2024 025 [facility] (Laboratory), [address] [place], [address], 08/07/2024 16:54:56 TSH, serum or plasma 2024 025 [facility] (Laboratory), [address] [place], [address], 08/07/2024 17:43:13 vitamin D, 25-hydrox y, total, serum 2024 025 [facility] [address] [place], [address], 08/07/2024 15:05:26 hemoglobi n A1C/hemog lobin total, QN, blood 2024 025 [facility] (Laboratory), [address] [place], [address], 08/14/2024 07:47:13 hemoglobi n A1c + average glucose, QN, blood 2024 025 [facility] (Laboratory), [address] [place], [address], 08/14/2024 07:47:13 Referral gastroent erologist referral 2024 025 RILEY Sánchez MD, [address] [facility] [place], [address], 08/21/2024 08:34:40 [facility] referral 2024 025 [facility] Dede Urrutia hnp, [address] [place], [address], 08/14/2024 07:47:07 Procedures None recorded. Surgeries None recorded. Imaging XR, knee, 3 view [address] (Scheduling), [address] [place], [address], 09/04/2024 09:05:54 CT, abdomen + pelvis, w/o contrast [address] (Scheduling), [address] [place], [address], 09/04/2024 09:05:54 Medication Orders metronida zole 500 mg tablet 2024 025 [facility], [address] [place] [address] [place], [id number], 08/17/2024 16:30:58 diclofena c 3 % topical gel 2024 025 [facility], [address] [place] [address], [id number], 08/07/2024 15:13:25 Seroquel 100 mg tablet 2024 025 [facility], [address] [place] [address], [id number], 08/08/2024 14:14:02 Linzess 145 mcg capsule 2024 025 [facility], [address] [place] [address], [id number], 08/08/2024 14:14:03 Dulcolax (bisacody l) 5 mg tablet,de layed release 2024 025 [facility] #[id number], [address] [place], [address], 06/06/2024 15:51:27 Patient TargetsNo targets recorded. Patient InstructionsNo instructions recorded. 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 1 Not Available [facility] (Pre-Op Clinic) [address] [facility] [place], [address], 05/22/2024 15:12:11 05/23/19 25 05/22/2024 BASIC METAB OLIC PANEL chloride 104 mmol/ L 98-110 Not Available [facility] (Pre-Op [facility]) [address] [facility] [place], [address], 05/22/2024 15:12:11 05/23/19 25 05/22/2024 BASIC METAB OLIC PANEL carbon dioxide 30 mmol/ L 21-30 Not Available [facility] (Pre-Op [facility]) [address] [facility] [place], [address], 05/22/2024 15:12:11 05/23/19 25 05/22/2024 BASIC METAB OLIC PANEL anion gap 8 mmol/ L 6-14 Not Available [facility] (Pre-Op [facility]) [address] [facility] [place], [address], 05/22/2024 15:12:11 05/23/19 25 05/22/2024 BASIC METAB OLIC PANEL glucose 192 mg/dL 70-115 high Not Available [facility] (Pre-Op Clinic) [address] [place] [address] [place], [address], 05/22/2024 15:12:11 05/23/19 25 05/22/2024 BASIC METAB OLIC PANEL BUN 19 mg/dL 9-20 Not Available [facility] (Pre-Op [facility]) [address] [place] [address] [place], [address], 05/22/2024 15:12:11 05/23/19 25 05/22/2024 BASIC METAB OLIC PANEL creatinine 0.9 mg/dL 0.5-1. 5 Not Available [facility] (Pre-Op Clinic) [address] [place] [address] [place], [address], 05/22/2024 15:12:11 05/23/19 25 05/22/2024 BASIC METAB OLIC PANEL BUN/creatini ne ratio 21 10-20 high Not Available [facility] (Pre-Op [facility]) [address] [place] [address] [place], [address], 05/22/2024 15:12:11 05/23/19 25 05/22/2024 BASIC METAB OLIC PANEL glom filtration rate 86 mL/mi n >60- GFR LIMIT ATION : The eGFR equat ion CKD-E PI 2020 is not appli cable for pedia tric patie nts or great er than 90 years of age. The follo wing condi tions may alter the GFR resul t: extre mes in body size, malnu triti on or obesi ty, skele nettie muscl e disea se, parap legia or quadr ipleg ia, veget otilia diet or rapid ly quiles ing kiney funct ion. Not Available [facility] (Pre-Op Clinic) [address] [place] [address] [place], [address], 05/22/2024 15:12:11 05/23/19 25 05/22/2024 BASIC METAB OLIC PANEL osmolality (calculated) 303 mosmo l/kg 275-30 1 high OSMOL ALITY IS A CALCU LATIO N UTILI ZING THE SERUM /PLAS MA SODIU M, GLUCO SE AND UREA NITRO GEN (BUN) LEVEL S. FOR THE MOST ACCUR ATE RESUL T A MEASU RED SERUM OSMOL ALITY IS SUGGE STED. Not Available [facility] (Pre-Op Clinic) [address] [place] [address] [place], [address], 05/22/2024 15:12:11 05/23/19 25 05/22/2024 BASIC METAB OLIC PANEL calcium 9.5 mg/dL 8.5-10 .8 Not Available [facility] (Pre-Op [facility]) [address] [place] [address] [place], [address], 05/22/2024 15:12:11 05/23/19 25 05/22/2024 BASIC METAB OLIC PANEL note Unles s other steve noted testi ng perfo [facility]med at: [facility] [address] [place] [address] Edison fernández MD Not Available [facility] (Pre[facility]Op [facility]) [address] [facility] [place], [address], 05/22/2024 15:12:11 05/24/1905/23/2024 CBC NO DIFF (HEMO GRAM) WBC 10.42 K/uL 4.5-11 .5 Not Available [facility] (Pre-Op Clinic) [address] [place] [address] [place], [address], 05/23/2024 17:37:00 05/24/1905/23/2024 CBC NO DIFF (HEMO GRAM) RBC 4.34 M/uL 4.0-5. 4 Not Available [facility] (Pre-Op Clinic) [address] [place] [address] [place], [address], 05/23/2024 17:37:00 05/24/1905/23/2024 CBC NO DIFF (HEMO GRAM) HGB 12.6 g/dL 14.0-1 8.0 low Not Available [facility] (Pre-Op Clinic) [address] [place] [address] [place], [address], 05/23/2024 17:37:00 05/24/1905/23/2024 CBC NO DIFF (HEMO GRAM) HCT 38.2 % 40-54 low Not Available [facility] ([facility]-Op [facility]) [address] [place] [address] [place], [address], 05/23/2024 17:37:00 05/24/1905/23/2024 CBC NO DIFF (HEMO GRAM) MCV 88.0 fL 80.0-1 00.0 Not Available [facility] (Pre-Op [facility]) [address] [place] [address] [place], [address], 05/23/2024 17:37:00 05/24/1905/23/2024 CBC NO DIFF (HEMO GRAM) MCH 29.0 pg 26.0-3 2.0 Not Available [facility] (Pre-Op [facility]) [address] [place] [address] [place], [address], 05/23/2024 17:37:00 05/24/1905/23/2024 CBC NO DIFF (HEMO GRAM) MCHC 33.0 g/dL 32.0-3 6.0 Not Available [facility] ([facility]Op [facility]) [address] [place] [address] [place], [address], 05/23/2024 17:37:00 05/24/1905/23/2024 CBC NO DIFF (HEMO GRAM) RDW 12.5 % 11.5-1 4.5 Not Available [facility] ([facility]Op [facility]) [address] [place] [address] [place], [address], 05/23/2024 17:37:00 05/24/1905/23/2024 CBC NO DIFF (HEMO GRAM) platelet count 170 K/uL 142-42 4 Not Available [facility] ([facility]Op [facility]) [address] [place] [address] [place], [address], 05/23/2024 17:37:00 05/24/1905/23/2024 CBC NO DIFF (HEMO GRAM) MPV 11.2 fL 6.8-10 .2 high Not Available [facility] ([facility]) [address] [place] [address] [place], [address], 05/23/2024 17:37:00 05/24/1905/23/2024 CBC NO DIFF (HEMO GRAM) note Unles s other steve noted testi ng perfo rmed at: [facility] [address] [place] [address] Edison fernández MD Not Available [facility] (Pre-Op [facility]) [address] [place] [address] [place], [address], 05/23/2024 17:37:00 05/24/1905/23/2024 BASIC METAB OLIC PANEL sodium 132 mmol/ L 137-14 7 low Not Available [facility] ([facility]Op [facility]) [address] [place] [address] [place], [address], 05/23/2024 20:49:56 05/24/1905/23/2024 BASIC METAB OLIC PANEL potassium 3.7 mmol/ L 3.5-5. 1 Not Available [facility] ([facility]Op [facility]) [address] [facility] [place], [address], 05/23/2024 20:49:56 05/24/1905/23/2024 BASIC METAB OLIC PANEL chloride 97 mmol/ L 98-110 low Not Available [facility] ([facility]Op [facility]) [address] [facility] [place], [address], 05/23/2024 20:49:56 05/24/1905/23/2024 BASIC METAB OLIC PANEL carbon dioxide 27 mmol/ L 21-30 Not Available [facility] ([facility]) [address] [facility] [place], [address], 05/23/2024 20:49:56 05/24/1905/23/2024 BASIC METAB OLIC PANEL anion gap 8 mmol/ L 6-14 Not Available [facility] ([facility]) [address] [facility] [place], [address], 05/23/2024 20:49:56 05/24/1905/23/2024 BASIC METAB OLIC PANEL glucose 225 mg/dL 70-115 high Not Available [facility] ([facility]) [address] [facility] [place], [address], 05/23/2024 20:49:56 05/24/1905/23/2024 BASIC METAB OLIC PANEL BUN 19 mg/dL 9-20 Not Available [facility] ([facility]) [address] [facility] [place], [address], 05/23/2024 20:49:56 05/24/1905/23/2024 BASIC METAB OLIC PANEL creatinine 0.8 mg/dL 0.5-1. 5 Not Available [facility] ([facility]-Op [facility]) [address] [place], [address], 05/23/2024 20:49:56 05/24/1905/23/2024 BASIC METAB OLIC PANEL BUN/creatini ne ratio 24 10-20 high Not Available [facility] (Pre-Op [facility]) [address] [place] [address] [place], [address], 05/23/2024 20:49:56 05/24/1905/23/2024 BASIC METAB OLIC PANEL glom filtration rate 89 mL/mi n >60- GFR LIMIT ATION : The eGFR equat ion CKD-E PI 2020 is not appli cable for pedia tric patie nts or great er than 90 years of age. The follo wing condi tions may alter the GFR resul t: extre mes in body size, malnu triti on or obesi ty, skele nettie muscl e disea se, parap legia or quadr ipleg ia, veget otilia diet or rapid ly quiles ing kiney funct ion. Not Available [facility] (Pre-Op [facility]) [address] [place] [address] [place], [address], 05/23/2024 20:49:56 05/24/1905/23/2024 BASIC METAB OLIC PANEL osmolality (calculated) 284 mosmo l/kg 275-30 1 OSMOL ALITY IS A CALCU LATIO N UTILI ZING THE SERUM /PLAS MA SODIU M, GLUCO SE AND UREA NITRO GEN (BUN) LEVEL S. FOR THE MOST ACCUR ATE RESUL T A MEASU RED SERUM OSMOL ALITY IS SUGGE STED. Not Available [facility] (Pre-Op [facility]) [address] [place] [address] [place], [address], 05/23/2024 20:49:56 05/24/1905/23/2024 BASIC METAB OLIC PANEL calcium 8.4 mg/dL 8.5-10 .8 low Not Available [facility] (Pre-Op [facility]) [address] [place] [address] [place], [address], 05/23/2024 20:49:56 05/24/19 25 05/23/2024 BASIC METAB OLIC PANEL note Unles s other steve noted testi ng perfo rmed at: [facility] [address] [place] [address] Edison fernández MD Not Available [facility] (Pre-Op Clinic) [address] [place] [address] [place], [address], 05/23/2024 20:49:56 08/08/19 25 08/07/2024 CBC AUTO W DIFF WBC 8.7 10 4.5-11 .5 Not Available [facility] (Lab Registration) [address] [place], [address], 08/07/2024 16:54:56 08/08/19 25 08/07/2024 CBC AUTO W DIFF RBC 4.54 10 4.25-5 .57 Not Available [facility] (Lab Registration) [address] [place], [address], 08/07/2024 16:54:56 08/08/19 25 08/07/2024 CBC AUTO W DIFF HGB 13.2 g/dL 13.5-1 7.2 low Not Available [facility] (Lab Registration) [address] [place], [address], 08/07/2024 16:54:56 08/08/19 25 08/07/2024 CBC AUTO W DIFF HCT 39.3 % 42.0-5 2.0 low Not Available [facility] (Lab Registration) [address] [place], [address], 08/07/2024 16:54:56 08/08/19 25 08/07/2024 CBC AUTO W DIFF MCV 86.6 fL 80-95 Not Available [facility] (Lab Registration) [address] [place], [address], 08/07/2024 16:54:56 08/08/19 25 08/07/2024 CBC AUTO W DIFF MCH 29.1 pg 27.0-3 4.0 Not Available [facility] (Lab Registration) [address] [place], [address], 08/07/2024 16:54:56 08/08/19 25 08/07/2024 CBC AUTO W DIFF MCHC 33.6 g/dL 32.0-3 6.0 Not Available [facility] (Lab Registration) [address] [place], [address], 08/07/2024 16:54:56 08/08/19 25 08/07/2024 CBC AUTO W DIFF platelet count 204 10 150-45 0 Not Available [facility] (Lab Registration) [address] [place], [address], 08/07/2024 16:54:56 08/08/19 25 08/07/2024 CBC AUTO W DIFF RDW 13.0 % 12.3-1 5.1 Not Available [facility] (Lab Registration) [address] [place], [address], 08/07/2024 16:54:56 08/08/19 25 08/07/2024 CBC AUTO W DIFF MPV 10.9 fL 7.4-10 .4 high Not Available [facility] (Lab Registration) [address] [place], [address], 08/07/2024 16:54:56 08/08/19 25 08/07/2024 CBC AUTO W DIFF granulocyte% 66.7 % 40-75 Not Available [facility] (Lab Registration) [address] [place], [address], 08/07/2024 16:54:56 08/08/19 25 08/07/2024 CBC AUTO W DIFF lymphocyte% 25.0 % 15-57 Not Available [facility] (Lab Registration) [address] [place], [address], 08/07/2024 16:54:56 08/08/19 25 08/07/2024 CBC AUTO W DIFF monocyte% 7.5 % 4.0-12 .0 Not Available [facility] (Lab Registration) [address] [place], [address], 08/07/2024 16:54:56 08/08/19 25 08/07/2024 CBC AUTO W DIFF eosinophil% 0.5 % 0.0-4. 0 Not Available [facility] (Lab Registration) [address] [place], [address], 08/07/2024 16:54:56 08/08/19 25 08/07/2024 CBC AUTO W DIFF basophil% 0.1 % 0.0-1. 0 Not Available [facility] (Lab Registration) [address] [place], [address], 08/07/2024 16:54:56 08/08/19 25 08/07/2024 CBC AUTO W DIFF immature granulocytes % 0.2 % 0.0-0. 8 Not Available [facility] (Lab Registration) [address] [place], [address], 08/07/2024 16:54:56 08/08/19 25 08/07/2024 CBC AUTO W DIFF granulocyte# 5.78 10 Not Available [facility] (Lab Registration) [address] [place], [address], 08/07/2024 16:54:56 08/08/19 25 08/07/2024 CBC AUTO W DIFF lymphocyte# 2.17 10 Not Available [facility] (Lab Registration) [address] [place], [address], 08/07/2024 16:54:56 08/08/19 25 08/07/2024 CBC AUTO W DIFF monocyte# 0.65 10 Not Available [facility] (Lab Registration) [address] [place], [address], 08/07/2024 16:54:56 08/08/19 25 08/07/2024 CBC AUTO W DIFF eosinophil# 0.04 10 Not Available [facility] (Lab Registration) [address] [place], [address], 08/07/2024 16:54:56 08/08/19 25 08/07/2024 CBC AUTO W DIFF basophil# 0.01 10 Not Available [facility] (Lab Registration) [address] [place], [address], 08/07/2024 16:54:56 08/08/19 25 08/07/2024 CBC AUTO W DIFF immature granulocytes # 0.02 10 Not Available [facility] (Lab Registration) [address] [place], [address], 08/07/2024 16:54:56 08/08/19 25 08/07/2024 CBC AUTO W DIFF manual differential NO Not Available [facility] (Lab Registration) [address] [place], [address], 08/07/2024 16:54:56 08/08/19 25 08/07/2024 CBC AUTO W DIFF note Unles s other steve noted testi ng perfo rmed at: [facility] [address] [place] [address] [phone] Edison fernández MD CLIA: [id number] Not Available [facility] (Lab Registration) [address] [place], [address], 08/07/2024 16:54:56 08/08/19 25 08/07/2024 HEMOG LOBIN A1C glycosylated hemoglobin A1C 6.8 % 4.5-6. 2 high Not Available [facility] (Lab Registration) [address] [place], [address], 08/07/2024 17:35:48 08/08/19 25 08/07/2024 HEMOG LOBIN A1C estimated average glucose 148 mg/dL 82-131 high Not Available [facility] (Lab Registration) [address] [place], [address], 08/07/2024 17:35:48 08/08/19 25 08/07/2024 HEMOG LOBIN A1C note Adela s other steve noted testi ng perfo rmed at: [facility] [address] [place] [address] [phone] Edison fernández MD CLIA: [id number] Not Available [facility] (Lab Registration) [address], [place], [address], 08/07/2024 17:35:48 08/08/19 25 08/07/2024 THYRO ID STIMU LATIN G HORMO NE thyroid stimulating hormone 2.12 mIU/m L 0.34-4 .80 Not Available [facility] (Lab Registration) [address] [place], [address], 08/07/2024 17:43:13 08/08/19 25 08/07/2024 THYRO ID STIMU LATIN G HORMO NE note Adela fernández other steve noted testi ng perfo rmed at: [facility] [address] [place] [phone] Edison fernández MD CLIA: [id number] Not Available [facility] (Lab Registration) [address] [place], [address], 08/07/2024 17:43:13 08/08/19 25 08/07/2024 VITAM IN D TOTAL (D2+D 3) vitamin D25 (D2+D3) 21.0 NG/mL 30-100 low Not Available [facility] (Lab Registration) [address] [place], [address], 08/07/2024 17:43:14 08/08/19 25 08/07/2024 VITAM IN D TOTAL (D2+D 3) note Adela fernández other steve noted testi ng perfo rmed at: [facility] [address] [place] [address] [phone] Edison fernández MD CLIA: [id number] Not Available [facility] (Lab Registration) [address] [place], [address], 08/07/2024 17:43:14 08/08/19 25 08/07/2024 COMP METAB OLIC PANEL sodium 142 mmol/ L 136-14 5 Not Available [facility] (Lab Registration) [address] [place], [address], 08/07/2024 17:43:15 08/08/19 25 08/07/2024 COMP METAB OLIC PANEL potassium 4.2 mmol/ L 3.5-5. 1 Not Available [facility] (Lab Registration) [address] [place], [address], 08/07/2024 17:43:15 08/08/19 25 08/07/2024 COMP METAB OLIC PANEL chloride 104 mmol/ L 98-107 Not Available [facility] (Lab Registration) [address] [place], [address], 08/07/2024 17:43:15 08/08/19 25 08/07/2024 COMP METAB OLIC PANEL carbon dioxide 31 mmol/ L 21-32 Not Available [facility] (Lab Registration) [address] [place], [address], 08/07/2024 17:43:15 08/08/19 25 08/07/2024 COMP METAB OLIC PANEL anion gap 7.0 Not Available [facility] (Lab Registration) [address] [place], [address], 08/07/2024 17:43:15 08/08/19 25 08/07/2024 COMP METAB OLIC PANEL glucose 149 mg/dL 70-110 high Not Available [facility] (Lab Registration) [address] [place], [address], 08/07/2024 17:43:15 08/08/19 25 08/07/2024 COMP METAB OLIC PANEL blood urea nitrogen 20 mg/dL 7-18 high Not Available [facility] (Lab Registration) [address], [place], [address], 08/07/2024 17:43:15 08/08/19 25 08/07/2024 COMP METAB OLIC PANEL creatinine 1.3 mg/dL 0.8-1. 3 Not Available [facility] (Lab Registration) [address], [place], [address], 08/07/2024 17:43:15 08/08/19 25 08/07/2024 COMP METAB OLIC PANEL BUN/creatini ne ratio 15.4 9-21 Not Available [facility] (Lab Registration) [address], [place], [address], 08/07/2024 17:43:15 08/08/19 25 08/07/2024 COMP METAB OLIC PANEL estimated glom filtration rate 55 mL/mi n >60- low GFR LIMIT ATION : The eGFR equat ion CKD-E PI 2020 is not appli cable for pedia tric patie nts or great er than 90 years of age. The follo wing condi tions may alter the GFR resul t: extre mes in body size, malnu triti on or obesi ty, skele nettie muscl e disea se, parap legia or quadr ipleg ia, veget otilia diet or rapid ly quiles ing kiney funct ion. Not Available [facility] (Lab Registration) [address], [place], [address], 08/07/2024 17:43:15 08/08/19 25 08/07/2024 COMP METAB OLIC PANEL osmolality (calculated) 301 mOsm/ kg 275-30 1 OSMOL ALITY IS A CALCU LATIO N UTILI ZING THE SERUM /PLAS MA SODIU M, GLUCO SE AND UREA NITRO GEN (BUN) LEVEL S. FOR THE MOST ACCUR ATE RESUL T A MEASU RED SERUM OSMOL ALITY IS SUGGE STED. Not Available [facility] (Lab Registration) [address] [place], [address], 08/07/2024 17:43:15 08/08/19 25 08/07/2024 COMP METAB OLIC PANEL total protein 7.2 g/dL 6.4-8. 2 Not Available [facility] (Lab Registration) [address] [place], [address], 08/07/2024 17:43:15 08/08/19 25 08/07/2024 COMP METAB OLIC PANEL albumin 3.9 g/dL 3.4-5. 0 Not Available [facility] (Lab Registration) [address] [place], [address], 08/07/2024 17:43:15 08/08/19 25 08/07/2024 COMP METAB OLIC PANEL calcium 9.8 mg/dL 8.5-10 .1 Not Available [facility] (Lab Registration) [address] [place], [address], 08/07/2024 17:43:15 08/08/19 25 08/07/2024 COMP METAB OLIC PANEL corrected calcium 9.9 mg/dL 8.5-10 .1 Not Available [facility] (Lab Registration) [address] [place], [address], 08/07/2024 17:43:15 08/08/19 25 08/07/2024 COMP METAB OLIC PANEL bilirubin total 0.8 mg/dL 0.4-1. 5 Not Available [facility] (Lab Registration) [address] [place], [address], 08/07/2024 17:43:15 08/08/19 25 08/07/2024 COMP METAB OLIC PANEL AST (SGOT) 18 U/L 15-37 Not Available [facility] (Lab Registration) [address] [place], [address], 08/07/2024 17:43:15 08/08/19 25 08/07/2024 COMP METAB OLIC PANEL ALT (SGPT) 26 U/L 12-78 Not Available [facility] (Lab Registration) [address] [place], [address], 08/07/2024 17:43:15 08/08/19 25 08/07/2024 COMP METAB OLIC PANEL alk phosphatase 71 U/L Not Available [facility] (Lab Registration) [address] [place], [address], 08/07/2024 17:43:15 08/08/19 25 08/07/2024 COMP METAB OLIC PANEL note Unles s other steve noted testi ng perfo rmed at: [facility] [address] [place] [address] [phone] Edison fernández MD CLIA: [id number] Not Available [facility] (Lab Registration) [address] [place], [address], 08/07/2024 17:43:15 08/08/19 25 08/07/2024 LIPID PANEL triglyceride 154 mg/dL 20-200 The Natio nal Ida stero l Educa tion Progr am (NCEP ) has set the follo wing guide lines for Fasti ng Trigl yceri adam: KEVAN L: <150 mg/dL BORDE RLINE HIGH: 150 - 199 mg/dL HIGH: 200 - 499 mg/dL VERY HIGH: > or =500 mg/dL Not Available [facility] (Lab Registration) [address] [place], [address], 08/07/2024 17:43:17 08/08/19 25 08/07/2024 LIPID PANEL cholesterol 176 mg/dL 0-200 The Natio nal Ida stero l Educa tion Progr am (NCEP ) has set the follo wing guide lines for Fasti ng Ida stero l: ARMANDO ABLE: <200 mg/dL BORDE RLINE HIGH: 200 - 239 mg/dL HIGH: > or =240 mg/dL Not Available [facility] (Lab Registration) [address] [place], [address], 08/07/2024 17:43:17 08/08/19 25 08/07/2024 LIPID PANEL HDL cholesterol 46 mg/dL 60- low The [facility] [employer] ([facility] ) has set the follo wing guide lines for Fasti ng HDL Ida stero l: LOW HDL: <40 mg/dL KEVAN L: 40 - 60 mg/dL ARMANDO ABLE: >60 mg/dL Not Available [facility] (Lab Registration) [address], [place], [address], 08/07/2024 17:43:17 08/08/19 25 08/07/2024 LIPID PANEL LDL calculated 99 mg/dL 100- low The [employer]io n[facility] [employer] ([facility] ) has set the follo wing guide lines for Fasti ng LDL Ida stero l: OPTIM AL: < 100 mg/dL LOW RISK: 100 - 129 mg/dL BORDE RLINE HIGH: 130 - 159 mg/dL HIGH: 160 - 189 mg/dL VERY HIGH: > or = 190 mg/dL Not Available [facility] (Lab Registration) [address], [place], [address], 08/07/2024 17:43:17 08/08/19 25 08/07/2024 LIPID PANEL chol/HDL ratio 4 -5 Not Available [facility] (Lab Registration) [address], [place], [address], 08/07/2024 17:43:17 08/08/19 25 08/07/2024 LIPID PANEL note Unles s other steve noted testi ng perfo rmed at: [facility] [address] [place] [address] [phone] Edison fernández MD CLIA: [id number] Not Available [facility] (Lab Registration) [address] [place], [address], 08/07/2024 17:43:17 08/08/19 25 08/07/2024 bladd er scan (PROC ) Calculated Residual Urine: 26 ml Not Available [facility] [address] [facility], [place], [address], 08/07/2024 14:02:05 05/29/19 25 05/24/2024 imagi ng inter preta tion No observ ation record ed. [email or web address] [facility] (Registration ) [address] [place] [address] [place], [address], 05/29/2024 08:29:35 Result Notes None recorded. Problems Name Problem SNOMED Code Status Onset Date Resolution Date Notes Provider Name and Address Organization Details Recorded Time Mixed anxiety and depressive disorder 314091019 Active Yari Pardini null, [place] - [facility] - [place] & [place] 3 08:49:12 Degeneration of lumbar intervertebra l disc 23446775 Active Not Available [facility] 3 08:28:09 Insomnia 178000274 Active Yari Pardini null, [place] - [facility] [place] 3 08:49:02 Essential hypertension 61212152 Active Yari Pardini null, [place] [facility] & [place] 3 08:48:59 Orthostatic hypotension 42737831 Active Not Available [facility] 3 08:28:09 Lumbar radiculopathy 233408104 Active Not Available [facility] 3 08:28:08 Benign prostatic hyperplasia 931135420 Active Yari Pardini null, [place] - [facility] [place] 3 08:48:50 Type 2 diabetes mellitus without complication 811651543 Active Not Available [facility] 3 08:28:09 Spinal stenosis of lumbar region 22048898 Active Not Available [facility] 3 08:28:08 Type 2 diabetes mellitus 16458200 Active Yari Pardini null, [place] - [facility] & [place] 3 08:49:41 Chronic diarrhea 379525288 Active Not Available [facility] 3 08:28:09 Mixed hyperlipidemi a 897809082 Active Yari Ifeanyii null, [place] [facility] & [place] 3 08:49:19 Hypersomnia 90341327 Active Not Available [facility] 3 08:28:09 Long-term current use of insulin 981447658 Active Yari Sabinodini null, [place] - [facility] [place] 3 08:49:05 Disorder of nervous system due to type 2 diabetes mellitus 434601856 Active Yari Sabinodini null, [place] [facility] & [place] 3 08:48:55 Dizziness 270767647 Active 2022 Barbra Chua DO [address] [place], [address] , [place] 3 09:03:52 Syncope 740563897 Active 2022 [place], [address] , [place] [facility] - [facility] & [place] 3 09:05:30 Problem Notes None recorded. Procedures Surgical History Date Name Laterality Status Provider Name and Address Organization Details Recorded Time 07/01/19 25 Bladder Irrigation completed Fransico Kidd Jr, MD [address] [place] [address], [address], [address], [place] [facility] [place] 07/26/2024 13:01:58 06/03/19 25 Bladder Irrigation completed Fransico Kidd Jr, MD [address] [place] [address], [address], [place], [address], [place] [facility] & [place] 06/02/2024 15:32:44 05/30/19 25 Bladder Irrigation completed Fransico Kidd Jr, MD [address] [place] [address], [address], [address], [place] [facility] & [place] 05/29/2024 13:01:22 03/10/19 25 Cystoscopy-Male completed Fransico Kidd Jr, MD [address] [place] [address], [address], [address], [place] 03/10/2024 13:15:48 07/27/19 24 Nail debridement (6-10) completed Leslie IBARRA - [facility] & [place] 07/27/2023 10:42:36 12/30/19 23 cardiac catheterization completed Ирина IBARRA - [facility] & [place] 10/01/2023 14:35:36 03/01/19 incision and drainage completed Ирина IBARRA - [facility] & [place] 10/01/2023 14:34:20 Cholecystectomy completed Ирина IBARRA - [facility] - [place] & [place] 10/01/2023 14:33:48 Imaging Results None recorded. Procedure [...] 2024 active Not Available Not Available Not Avcrys mendez True [employer] Level 1 solution 11/09 [...] Details Last Updated DateTime 5 165.1 cm 35.1 kg/m2 20732.9 9 g 97.2 [degF] 99 % 99 % 68 /min 16 /min 159/69 mm[Hg] Yari IBARRA [facility] & [place] 5 15:52:21 Date Recorded Body height Body mass index (BMI) Body weight Body temperature Provider Name and Address Organization Details Last Updated DateTime 06/30/2024 165.1 cm 36.8 kg/m2 683105.91 g 98.1 [degF] Yun White STACEY [facility] & [place] 06/30/2024 14:28:47 Date Recorded Body height Body mass index (BMI) Body weight Body temperature Oxygen saturation Oxygen saturation in Arterial blood by Pulse oximetry Heart rate Respiratory rate Systolic And Diastolic Provider Name and Address Organization Details Last Updated DateTime 5 165.1 cm 33.9 kg/m2 43960.8 4 g 97.2 [degF] 98 % 98 % 80 /min 16 /min 143/79 mm[Hg] Yarisree IBARRA [facility] [place] 14:34:21 Date Recorded Body height Body mass index (BMI) Body weight Body temperature Provider Name and Address Organization Details Last Updated DateTime 08/07/2024 165.1 cm 36.8 kg/m2 928637.91 g 98.5 [degF] Yun Zuletaou STACEY [facility] [place] 08/07/2024 11:46:12 Date Recorded Body height Body mass index (BMI) Body weight Body temperature Oxygen saturation Oxygen saturation in Arterial blood by Pulse oximetry Heart rate Respiratory rate Systolic And Diastolic Provider Name and Address Organization Details Last Updated DateTime 5 165.1 cm 33.4 kg/m2 91924.0 7 g 97.3 [degF] 96 % 96 % 74 /min 14 /min 148/77 mm[Hg] Yari IBARRA [facility] [place] 15:30:36 Social History Question Answer Notes LastModified by Organizat ion Details LastModified Time Tobacco Smoking Status Never Smoker Not Available [facility] 11/10/2021 09:52:01 Do You Have An Advance Directive? No Information not available 05/05/2022 Are You Blind Or Do You Have Difficulty Seeing? Yes Information not available 05/05/2022 What Is Your Level Of Caffeine Consumption? Occasional [email or web address] Information not available 03/04/2023 In The 14 Days Before Symptom Onset, Have You Had Close Contact With A [facility] While That Case Was Ill? No [...] Of Your Most Recent Tobacco Screening? 05/31/2023 [email or web address] Information not available 05/31/2023 Do You Have Any Pets? No Information not available 03/14/2024 What Is Your Relationship Status? Lives Alone In Apartment [email or web address] Information not available 03/04/2023 Do You Use [...] You Currently In School? No 6th Grade [email or web address] Information not available 03/04/2023 Sex: Unknown Functional Status Question Answer Note LastModified by Organizat ion Details LastModified Time Do you use any illicit or recreational drugs? No Information not available 05/05/2022 Do you or have you ever used smokeless tobacco? Never used smokeless tobacco Information not available 01/06/2023 Are you currently employed? No retired Information not available 03/04/2023 Do you have [...] anxious, or unable to sleep at night)? [id number] Information not available 03/14/2024 Do you have difficulty concentrating, remembering or making decisions? No Information no t available 03/14/2024 Family History Relationship Description Onset Age of this Age Resolved Age Notes LastModified by Organization Details LastModified Time Daughter Diabetes mellitus [email or web address] Not available 2023 14:33:15 Father Malignant neoplastic disease [email or web address] Not available 2023 14:33:32 Medical History Condition Response Obstructive Sleep Apnea Y Diabetes Y Anxiety Disorder Y Obesity Y Hyperlipidemia Y Heart Disease Y Hypertension Y Immunizations Vaccine Type Date Status Note Provider Nam e and Address Organization Details Recorded Time COVID-19, mRNA, LNP-S, PF, 100 mcg/0.5mL dose or 50 mcg/0.25mL dose 06/21/2020 completed Not Available [facility] 08:28:09 Past Encounters Encounter ID Performer Location Encounter Start Date Encounter Closed Date Diagnosis/Indication Diagnosis SNOMED-CT Code Diagnosis ICD10 Code Diagnosis Note [id number] MD maurizio Mina[address] [address] 03/03/2022 10:33:25 03/03/2022 11:10:42 Disorder of nervous system due to type 2 diabetes mellitus 438022614 E11.49 will obtain lab work today. Essential hypertension 08444482 I10 Will obtain lab work today. Patient's blood pressure is elevated he admits to not taking his medication . Type 2 maximino betes mellitus without complication 645761597 E11.9 Appears stable will obtain lab work today. Mixed hyperlipidemia 267 901374 E78.2 Obtain lab work today [id number] MD maurizio Mina[address] [address] 05/05/2022 15:10:51 05/05/2022 16:06:12 Degeneration of lumbar intervertebral disc 69692707 M51.36 PATIENT'S CHRONIC PAIN IS BEING MANAGED BY PAIN SPECIALIST . HE IS CURRENTLY ON HYDROCODON E Essential hypertension 05574097 I10 PATIENT TO CONTINUE TAKING HIS BLOOD PRESSURE MEDICATION PRESCRIBED . Mixed hyperlipidemia 267 082802 E78.2 STABLE Mixed anxi ety and depressive disorder 418215326 F41.8 PATIENT REPORTS GOOD RESPONSE TO CURRENT MEDICATION . WILL CONTINUE TO MONITOR FOR NOW. Type 2 maximino betes mellitus without complication 098318846 E11.9 PATIENT REPORTS THAT HIS BLOOD SUGARS ARE CONSISTENT LY BELOW 160. WILL RECHECK HIS LAB WORK AT HIS NEXT VISIT. Vertigo 438906427 R42 PATIENT REPORTS INTERMITTE NT VERTIGO. WILL GIVE HIM A PRESCRIPTI ON FOR MECLIZINE TO USE NEEDED. STATES THIS IS A CHRONIC PROBLEM FOR HIM THAT COMES AND GOES. HE STATES THAT HE HAS BEEN SEEN BY SEVERAL SPECIALIST S AND HAS HAD EXTENSIVE WORKUP IN THE PAST. [id number] Yariel Spain MD [address] [place] [address] 08/04/2022 14:29:05 08/04/2022 15:24:18 Type 2 diabetes mellitus without complication 562358817 E11.9 PATIENT REPORTS THAT HIS BLOOD SUGARS ARE CONSISTENT LY BELOW 160. Mixed hyperlipidemia 267 237079 E78.2 STABLE blood drawn in the right AC by Yari Toledo CMA, patient tolerated well. Sinus bradycardia 390961 05 R00.1 will refer to cardiology - (Patient's EKG actually indicates atrial fib.) Dr Lai per patient request will see him tomorrow @ 1030 am Disorder o f nervous system due to type 2 diabetes mellitus 542630977 E11.49 will obtain lab work today. Essential hypertension 67440215 I10 BLOOD PRESSURE CONTROLLED Atrial fibrillation 4943 6004 I48.0 NEW ONSET ATRIAL FIB. WE WILL START PATIENT ON ELIQUIS. HE HAS BEEN INSTRUCTED TO FOLLOW-UP WITH CARDIOLOGI TOMORROW. [id number] Yariel Spain MD [address] [place] [address] 09/29/2022 14:58:08 09/29/2022 15:33:39 Abdominal pain 41331067 R10.9 1st of all, will schedule patient for a screening colonoscop y. Depending on findings we will decide on further action. Screening for malignant neoplasm of colon 429238160 Z12.11 [id number] Jay Jay Mcclendon MD [facility] [address] [place] [address] [place] [address] 10/08/2022 10:15:02 10/12/2022 15:46:08 Screening colonoscopy 222255529 Z12.11 [id number] Yariel Spain MD [address] [place] [address] 10/29/2022 10:50:30 10/29/2022 11:31:13 Nocturia 439373067 R35.1 patient does have a history of BPH. He has been on terazosin and finasterid e for over 10 years. I will change him to Flomax and refer him to Urology. His blood sugars have been under 200 according to him. Will obtain lab work today. Insomnia 578733289 F51.0 9 Will stop his zolpidem and start him on amitriptyl ine per patient request. Type 2 maximino betes mellitus without complication 075489311 E11.9 will check patient's A1c today. [id number] MICHAEL QUINONEZ, ARUN [address] [place] [address] 11/09/2022 15:27:17 11/09/2022 16:26:21 Lightheadedness 717454599 R42 awaiting lab workhydrat ionER if any urgent signs or symptoms arise Long-term current use of anticoagulant 774579143 Z79.01 denies any bleeding or bruising Fall W19.XXXA fall prevention education Xerostomia 05635167 R68. 2 Atrial fibrillation 4943 6004 I48.91 daughter to make f/u with cardiology Joelle Organ or t issue vascular perfusion decreased 8588207 R09.89 needs lower ext US/arteria l duplexdaug hter to make f/u with cardiology ShotwellER if any urgent signs or symptoms arise [id number] Barbra Chua DO ZZ [facility] [address] [facility] [address] [place] [address] 01/06/2023 12:59:49 01/06/2023 14:00:55 Dizziness 654549181 R42 Chronic condition that has been progressin g in the last year. He describes a abnormal sensation in his head upon standing. It is transient. He has a normal neuro exam and CT head. His orthostati c bp/pulse were borderline here in the office. His systolic dropped 18 points, pulse was unchanged when he went from sitting to standing. The character of the dizziness seems most likely to be associated with some degree of orthostasi s. We reviewed behavioral modificati ons. Syncope 856170187 R55 He had two episodes of syncope in October, both preceded by a sudden feeling of light headedness . These were witnessed events and no characteri stics to suggest seizure. I do not feel these were of neurologic etiology. We discussed obtaining an EEG as a precaution but he and his daughter were comfortabl e holding off on this which I feel is reasonable considerin g I do not suspect seizures. [id number] Yariel Spain MD [facility] [address] [place] [address] 01/12/2023 11:40:44 01/12/2023 12:05:11 Benign prostatic hyperplasia 830830151 N40.1 appears stable with current medication s Degenerati on of lumbar intervertebral disc 38888334 M51.36 PATIENT'S CHRONIC PAIN IS BEING MANAGED BY PAIN SPECIALIST . HE IS CURRENTLY ON HYDROCODON E Essential hypertension 54898765 I10 BLOOD PRESSURE CONTROLLED Type 2 maximino red mellitus 31282358 E11.65 will obtain labs today Insomnia 828395960 F51.0 9 patient is supposed to be on Elavil. He is not taking his medication . He has told me would like to start melatonin. He will obtain some over-the-c ounter. [id number] Yariel Spain MD [facility] [address] [place] [address] 02/15/2023 08:32:38 02/15/2023 09:18:08 Pain of ear 123861689 H92.09 PATIENT'S PAIN APPEARS TO BE RESOLVING. WE HAVE HAD DISCUSSION S FAR ADJUSTING HIS MODE OF LAYING ON HIS COUCH TO SEE IF THIS WILL IMPROVE HIS SYMPTOMS. PATIENT IS WILLING TO DO THIS. AT THIS TIME WILL TREAT CONSERVATI VELY WITH OVER-THE-C OUNTER TYLENOL NEEDED. SHOULD PAIN PERSIST HE HAS BEEN ADVISED TO RETURN TO CLINIC. [id number] Yariel Spain MD [address] [place] [address] 02/17/2023 10:31:14 02/17/2023 10:52:10 Allergic reaction 544563160 T78.40XA patient may be having allergic reaction to unknown substance. Will treat him with steroids for now. Has been advised to watch his blood sugar as this may become elevated while taking steroids. If symptoms worsen has been advised to go straight to the emergency department . Essential hypertension 67321754 I10 Due to the elevation in blood pressure, I have advised him to start back on his lisinopril . He states that he was stopped by his cardiologi st because he was dizzy. [id number] Yariel Spain MD [place] [address] [address] [place] [address] 03/04/2023 15:21:22 03/04/2023 16:06:34 Long-term drug therapy 911472900 Z79.899 Dizziness 187594170 R42 I have told patient to hold his amlodipine and monitor his blood pressure. Should symptoms worsen he has been advised to go straight to the emergency department . Will see him back in a week with his blood pressure log. Degenerati on of lumbar intervertebral disc 21592322 M51.36 Type 2 maximino betes mellitus without complication 561347257 E11.9 will check patient's A1c today. [id number] Yariel Spain MD [address] [place] [address] 03/22/2023 14:53:18 03/22/2023 16:32:14 Essential hypertension 50388515 I10 Patient to take losartan It is currently being prescribed by his cardiologi st. Insomnia 575350503 F51.0 9 patient to stop amitriptyl ine and start taking zolpidem. [id number] Yariel Spain MD [address] [place] [address] 04/06/2023 15:25:17 04/08/2023 13:28:36 Essential hypertension 73950110 I10 I will refill patient's metoprolol . He has been advised to take his medication as prescribed . If his blood pressure remains elevated has been advised to go to the emergency department . Insomnia 383004415 F51.0 9 Patient instructed to Zolpidem. Will try him on Seroquel. Type 2 maximino betes mellitus without complication 571448766 E11.9 will check patient's A1c today. [id number] Yariel Spain MD [address] [place] [address] 04/14/2023 15:37:22 04/14/2023 16:23:39 Essential hypertension 73473884 I10 Will restart patient's amlodipine at 5 mg a day. Patient has been advised to continue to check his blood pressure and present at his next visit with a log. Generalize d anxiety disorder 58091941 F41.1 Will refill patient's alprazolam . We have discussed the potential for addiction. Patient assures me he will take it only as needed. [id number] Yariel Spain MD [address] [place] [address] 04/29/2023 09:53:14 04/29/2023 10:47:20 Benign prostatic hyperplasia 301491361 N40.1 Patient has not been taking his finasterid e. We have had a discussion regarding the importance of being compliant with his medication . He will resume taking this medication . Essential hypertension 11055418 I10 Blood pressure remains elevated. Daughter states that they will call the cardiologi and ask for a review of his medication s. They see Dr. Lai [facility] Mixed anxi ety and depressive disorder 301746993 F41.8 patient has not been taking his amitriptyl ine. We will restart that medication . He will also take an increased amount of alprazolam . I am increasing from 0.5-1 mg. [id number] Yariel Spain MD [facility] [address] [place] [address] 05/31/2023 08:20:22 05/31/2023 08:53:55 Benign prostatic hyperplasia 669085210 N40.1 Patient states that he has been taking his medication s, he is yet to see Urology. Essential hypertension 02476770 I10 Blood pressure is somewhat elevated today. Patient is under the care of cardiology . It appears that he has run out of medication this could contribute to his elevated blood pressure. We will refill his medication s today. Mixed hyperlipidemia 267 715538 E78.2 Will obtain lab work today. Chronic pain syndrome 37 2842446 G89.4 Type 2 maximino betes mellitus 88867890 E11.65 will obtain labs today Mixed anxi ety and depressive disorder 237096180 F41.8 patient has not been taking his amitriptyl ine. We will restart that medication . He will also take an increased amount of alprazolam . I am increasing from 0.5-1 mg. Cramp in lower limb 7189 65897 R25.2 patient is on Lasix. We are in the process of checking his potassium and his magnesium. [id number] Amarilis Sharpe DPM [facility] [address] [place] [address],[facility] [address] [place] [address] 07/27/2023 09:46:18 07/27/2023 11:02:39 Disorder of nervous system due to type 2 diabetes mellitus 791040903 E11.49 Performed/ updated lower extremity neurovascu lar exams today. Discussed importance of diabetic foot care including controllin g blood sugar, monitoring feet daily, applying moisturize r to feet but not between the toes, appropriat e shoe gear, drying well between the toes after bath, and risks associated with soaking feet. Also discussed importance of routine exercise (recommend daily average of 30 minutes), a balanced diet ( consider supplement ation if diet not adequate), and healthy sleep habits. Onychogryphosis 46085925 L60.2 Debrided toenails in thickness and length. Onychomycosis 982746596 B35.1 Discussed treatment options at length regarding onychomyco sis involving his/her toenails including routine maintenanc e, over-the-c ounter remedies, nail avulsion procedure, and topical and oral antifungal medication . Discussed risks and potential side effects of each option. I explained noticeable results can take 3 months or longer and complete resolution may take 6 months or longer. Discussed potential drug interactio ns and side effects of oral antifungal including remote risk of liver damage. I explained that recent LFTs would need to be obtained and reviewed prior to starting oral medication and may need to be rechecked during the course of the therapy. Patient verbalizes understand ing.Pt elects for topical therapy. Sent Rx today. Pain in left foot 954151 6226 27834 M79.672 pain associated with ingrown toenails improved with treatment Pain in right foot 19661 06140 05242 M79.671 pain associated with ingrown toenails improved with treatment Ingrowing toenail 224297 009 L60.0 [id number] Yariel Spain MD [address] [place] [address] 09/01/2023 14:52:02 09/01/2023 15:23:41 Disorder of nervous system due to type 2 diabetes mellitus 185735049 E11.49 will obtain lab work today. Pain of le ft hip joint 5002273809 45097 M25.356 [id number] Yariel Spain MD [facility] [address] [facility] [place] [address] 09/29/2023 14:26:29 09/29/2023 14:37:21 Essential hypertension 28702002 I10 will change patient to losartan /HCTZ [id number] Yariel Spain MD [facility] [address] [facility] [place] [address] 10/28/2023 15:10:36 10/28/2023 15:48:35 Type 2 diabetes mellitus 94587827 E11.65 Continue with current regimen. Essential hypertension 34728440 I10 Blood pressure remains elevated. Will refer patient to cardiology for assistance with management . Benign pro static hyperplasia 413066553 N40.1 Patient continues to complain of symptoms of BPH. He states that he missed his appointmen t with his urologist I have advised him to reschedule . [id number] Yariel Spain MD [facility] [address] [place] [address] 03/14/2024 14:42:59 03/14/2024 15:13:04 Type 2 diabetes mellitus without complication 929840547 E11.9 Patient to continue with current regimen Essential hypertension 76629164 I10 Blood pressure remains elevated. he has been instructed follow-up with his cardiologi st in the morning. If symptoms occur, patient needs to go to the emergency department . Spinal anna nosis of lumbar region 79106096 M48.061 Mixed anxi ety and depressive disorder 017177251 F41.8 Chronic pain syndrome 37 8474344 G89.4 Will refill patient's medication [id number] Fransico Kidd Jr, MD [facility] [place] [address] [place] [address] 03/10/2024 11:16:37 03/10/2024 13:01:12 Benign prostatic hyperplasia with outflow obstruction 863495292 N40.1 78-year-ol d white male with lower urinary tract symptoms despite being on tamsulosin and finasterid e. Cystoscopy today shows trilobar hyperplasi a with 2+ trabeculat ion. His bladder scan is 198 cc. We discussed options to help him empty and decrease his urinary tract symptoms and TURP was recommende d. We discussed the operative procedure, complicati ons and postoperat caio course. Would like to proceed and we will set this up at his earliest convenienc e. [id number] Fransico Kidd Jr, MD [facility] [place] [address] 05/29/2024 10:19:00 05/29/2024 11:25:13 Benign prostatic hyperplasia with outflow obstruction [id number] N40.1 N13.8 78-year-ol d white male with lower urinary tract symptoms despite being on tamsulosin and finasterid e. Cystoscopy today shows trilobar hyperplasi a with 2+ trabeculat ion. His bladder scan is 198 cc.Patient underwent trans urethral resection of prostate last week. Returns today for a voiding trial. He was able to void well after fluid was instilled into his bladder. We discussed his pathology and we also discussed that her proceed frequency could be seen for a couple weeks postop. He did not receive the Levaquin tablet postop and call that in for him today. He will return in 1 month bladder scan. [id number] Fransico Kidd Jr, MD [facility] [facility] [place] [address] 06/02/2024 13:44:50 06/02/2024 14:39:30 Benign prostatic hyperplasia with outflow obstruction [id number] N40.1 N13.8 Patient underwent trans urethral resection of prostate Two weeks ago. Voiding trial was performed last week and he voided well but when he went home he began having trouble later that evening and went back to emergency room on May 30. They placed a Hirsch catheter. BladderSca n showed 162 cc. Returns today for a voiding trial. He was able to void well after fluid was instilled into his bladder. He again voided well today. I reassured him that he should be able to void without difficulty and will follow up 1 month. He was further problems he is to let me know. [id number] Yariel Spain MD [facility] [address] [place] [address] 06/06/2024 15:24:53 06/06/2024 15:53:21 Retention of urine [id number] R33.9 I have advised patient to follow-up with his urologist regarding his catheter management . He left unhappy. Constipation [id number] K5 9.00 [id number] Fransico Kidd Jr, MD [facility] [address] [facility] [place] [address] 06/30/2024 14:27:28 06/30/2024 15:51:53 Benign prostatic hyperplasia with outflow obstruction [id number] N40.1 N13.8 Patient underwent trans urethral resection of prostate in April 2024. He is failed 2 voiding trials and a 3rd 1 was performed today. 200 cc placed into his bladder and he was able to void 175 cc. We discussed not going back to the emergency room for minor symptoms. He feels like he is having a great deal of pain in his suprapubic area and he has not been able to void for 6-8 hours then he should go. He is to return in 1 month for bladder scan. He was further problems he is to let me know. [id number] Yariel Spain MD [address] [place] [address] 08/07/2024 14:17:57 08/07/2024 15:02:26 Disorder of nervous system due to type 2 diabetes mellitus [id number] E11.49 will obtain lab work today. Essential hypertension [id number] I10 stable with current medication . Insomnia [id number] F51.0 9 will attempt to treat patient's insomnia with Seroquel. Mixed anxi ety and depressive disorder [id number] F41.8 Will refer patient to behavioral health. Mixed hyperlipidemia [id number] E78.2 Will obtain lab work today. Type 2 maximino betes mellitus 43548203 E11.65 Abdominal discomfort 433 24412 R10.9 1st of all, will schedule patient for a screening colonoscop y. Depending on findings we will decide on further action. Pain of knee region [id number] M25.561 G89.29 diclofenac gel [id number] Fransico Kidd Jr, MD [facility] [address] [facility] [place] [address] 08/07/2024 11:21:07 08/07/2024 13:10:23 Overactive urinary bladder [id number] N32.81 [id number] Yariel Spain MD [address] [place] [address] 08/16/2024 15:29:48 08/16/2024 15:44:15 Colitis [id number] K52.9 Health Concerns Section Related Observation LastModified by Organization Detai ls LastModified Time None Recorded Concern Status LastModified by Organization Details LastModified Time None Recorded Advance Directives Directive N: Payers Insurance Date Sequence Insurance Name Policy Number Policy Leon Covered Member ID Leon Member ID Guarantor Name 07/27/2023 1 [employer] (MEDICARE REPLACEMENT/ ADVANTAGE - HMO) Joe Prasad Barron [id number] Joe Prasad Barron 09/18/2023 1 [employer] (MEDICARE REPLACEMENT/ ADVANTAGE - PPO) Joe Prasad Barron [id number] Joe Prasad Barron 08/15/2024 1 [employer] (MEDICARE REPLACEMENT/ ADVANTAGE - PPO) Joe Prasad Barron [id number] Joe Prasad Barron Notes Date Note Type Note Provider Name and Address Organization Details Recorded Time 06/06/2024 text/html patient presents today requesting that we take out his urinary catheter. Patient had prostate surgery about 2 weeks ago. Patient's daughter states that he insisted that he wants his urinary catheter taken out. Patient has had a taken out twice every time he has had to go back to the emergency department to get it reinserted. I have asked him to follow-up with his urologist. Yariel Spain MD [address] [place] [address], [phone], [facility] & [place] 06/06/2024 16:06:13 06/30/2024 text/html Patient is an 79-year-old male with history of BPH. He underwent a TURP in April 2024. Two voiding trials have been attempted thus far and patient had to have a Hirsch catheter replaced. Current catheter has been in about a month and voiding trial planned again today. Previous bladder scan in emergency room was only 162 and patient reassured that this is not urinary retention with that small volume. Fransico Kidd Jr, MD [address] [place] [address], [address], [place], [phone], [facility] & [place] 07/26/2024 13:03:55 08/07/2024 text/html patient presents today complaining of several issues they include anxiety/ depression, right knee pain, constipation, depression insomnia. Yariel Spain MD [address] [place] [address], [phone], [facility] & [place] 08/07/2024 15:44:26 08/16/2024 text/html patient presents today for hospital follow-up. He was seen in the hospital and diagnosed in the emergency department with colitis. Patient was sent home with a brat diet and Imodium. He is also supposed to be on cefdinir. He states that his pain is a lot better he says that the diet has helped him. Yariel Spain MD [address] [place] [address], [phone], [facility] 08/16/2024 15:57:04
--- NOTE | 2024-09-08 10:30 | US_ITS ---
FINAL REPORT CLINICAL HISTORY: R94.31 - Abnormal electrocardiogram ECG EKG COMPARISON: None FINDINGS: RENAL ULTRASOUND Ultrasound images of the kidneys were obtained. The right kidney measures 11.9 cm in length. It is normal echogenicity. There is no hydronephrosis. The left kidney measures 10.4 cm in length. It is normal echogenicity. There is no hydronephrosis. IMPRESSION: Normal renal ultrasound. Reviewed, Interpreted and Dictated by Rianna Xie MD Transcribed by Juana Mercedes Authenticated and [facility]
--- NOTE | 2024-09-08 11:00 | CA_ITS ---
FINAL REPORT TECHNIQUE: Spectral and color Doppler exam CLINICAL HISTORY: HTN COMPARISON: None FINDINGS: DOPPLER RENAL VESSELS HISTORY: Hypertension . FINDINGS: Intrarenal resistive indices on the right are 0.67-0.80, normal . Intrarenal resistive indices on the left are 0.62-0.83, normal . Renal size is normal and symmetric. Right main renal artery systolic velocity: 146 cm/sec. Aortic-right renal artery flow velocity ratio: 1.42 COMMENT: No evidence of hemodynamically significant renal artery stenosis . Left main renal artery systolic velocity: 150 cm/sec. Aortic-left renal artery flow velocity ratio: 1.46 COMMENT: No evidence of hemodynamically significant renal artery stenosis . IMPRESSION: No evidence of hemodynamically significant renal artery stenosis CTA or gadolinium-enhanced MR may be considered as a more sensitive exam. Alternatively noncontrast MRI may be considered for assessing main renal arteries for stenosis as a more sensitive exam if the patient has renal insufficiency. Reviewed, Interpreted and Dictated by Rianna Xie MD Transcribed by Amy Naranjo Authenticated and [facility]
== END 2024-09-08 23:59 | disposition home or self-care (01) ==
PROVIDERS: PCP Emergency Medicine; Visit Provider Physician Assistant
DX: I25.10 Atherosclerotic heart disease of native coronary artery without angina pectoris (principal); R94.31 Abnormal electrocardiogram [ECG] [EKG]; I10 Essential (primary) hypertension; R60.0 Localized edema; I48.91 Unspecified atrial fibrillation
CPT/HCPCS: 76770; 93976

== ENCOUNTER 2025-01-31 12:17 | Outpatient (CLI) | payer MEDICARE, SELFPAY ==
--- OUTSIDE RECORDS SUMMARY | 2025-01-31 12:19 | XMS_ITS | Clinical Summary ---
Author Organization [facility] Address [address] [place] [address] Care Team Providers Care Security Chief Museum Name Role Phone Yariel Person MD Primary Care Provider [phone] Social History Tobacco Use Types Packs/Day Years Used Date Smoking Tobacco: Never Assessed Abuse Screen Answer Date Recorded Unsafe at Home or Work/School Not on file Feels Threatened by Someone? Not on file Does Anyone Keep You from Co ntacting Others or Doint Things Outside the Home? Not on file 12/11/2022 Physical Sign of Abuse Present Not on file 1 Housing Stability Answer Date Recorded Current Living Arrangements Not on file 11/29 Potentially Unsafe Housing Conditions Not on patricia e 12/11/2022 Family and Community Support Answer Reji e Recorded Help with Day-to-Day Activities Not on file 12/11/2022 Lonely or Isolated Not on file 12/11/2022 Employment Answer Date Recorded Do you want help finding or keeping work or a delmi b? Not on file 12/11/2022 Disabilities Answer Date Recorded Concentrating, Remembering, or Making Decisions Difficulty Not on file 12/11/2022 Doing Errands Independently Difficulty Not on fi le 12/11/2022 Education Answer Date Recorded Help with school or training? Not on file Preferred Language Not on file 12/11/2022 Sex and Gender Information Value Date Recorded Sex Assigned at Not on file Legal Sex Male 11:35 AM EDT Gender Identity Not on file Sexual Orientation Not on file Plan of Treatment Health Maintenance Due Date Last Done Comments ANNUAL PHYSICAL 1945 TDAP/TD VACCINES (1 - Tdap) 07/04/1962 Pneumococcal Vaccine 50+ (1 of 1 - PCV) 07/04/1993 ZOSTER VACCINE (1 of 2) 07/04/1993 RSV Vaccine - Adults (1 - 1-dose 75+ series) INFLUENZA VACCINE 09/29/2024 COVID-19 Vaccine (2 - 2024- season) 2024 Insurance [facility] [place] [address] Care Teams Security Chief Museum Relationship Specialty Start Date End Date Yariel Person MD [address] [place] [id number] PCP - General Emergency Medicine 11/27/22
[2025-01-31 13:25] LABS: Hematocrit 43.3 % (42.0-52.0); Hemoglobin 14.2 g/dL (14.1-18.0); Immature Granulocytes % 0.6 %; Mean Corpuscular HGB Conc 32.8 g/dL (31.8-35.4); Mean Corpuscular Hemoglobin 29.0 pg (27.0-31.2); Mean Corpuscular Volume 88.5 fl (80-94); Nucleated Red Blood Cells % 0 %; Platelet Count 209 K/mm3 (142-424); Red Blood Count 4.89 M/mm3 (4.60-6.20); Red Cell Distribution Width-SD 41.4 fL; White Blood Count 8.0 K/mm3 (4.8-10.8)
[2025-01-31 13:52] LABS: Alanine Aminotransferase 25 U/L (12-78); Albumin Level 4.7 g/dl (3.5-5.0); Alkaline Phosphatase 87 U/L (38-126); Anion Gap 8.7 mEq/L (5-15); Aspartate Amino Transferase 24 U/L (17-59); Bilirubin,Direct 0.1 mg/dl (0.0-0.4); Bilirubin,Indirect 0.8 mg/dL (0.0-0.9); Bilirubin,Total 0.9 mg/dl (0.2-1.3); Bilirubin,Unconjugated 0.8 mg/dL (0.0-1.1); Blood Urea Nitrogen 25 mg/dl (9-20); Calcium 10.0 mg/dl (8.4-10.2); Carbon Dioxide 29 mmol/L (22.0-30.0); Chloride 99 mmol/L (98-107); Cholesterol 195 mg/dl (140-200); Creatinine,Serum 0.90 mg/dl (0.66-1.25); Estimated Glomerular Filt Rate 81 ml/min (>60); GFR (African American) 98 ML/MIN (>60); Glucose 223 mg/dl (74-100); HDL Cholesterol 41 mg/dl (40-60); Magnesium 1.4 mg/dl (1.6-2.3); Potassium 3.7 mmoL/L (3.5-5.1); Sodium 133 mmol/L (136-145); Total Protein,Serum 7.7 g/dl (6.3-8.2); Triglycerides 263 mg/dl (30-150)
[2025-01-31 13:57] LABS: Hemoglobin A1C 7.3 % (4.0-6.0)
[2025-01-31 14:08] LABS: Free T4 (Free Thyroxine) 1.03 ng/dl (0.78-2.19)
[2025-01-31 14:22] LABS: Thyroid Stimulating Hormone 2.72 uIU/mL (0.465-4.68)
== END 2025-01-31 23:59 | disposition home or self-care (01) ==
LOC: LAB 12:18
PROVIDERS: PCP Emergency Medicine; Visit Provider Physician Assistant
DX: I25.110 Atherosclerotic heart disease of native coronary artery with unstable angina pectoris (principal); R94.31 Abnormal electrocardiogram [ECG] [EKG]; I48.20 Chronic atrial fibrillation, unspecified; E11.9 Type 2 diabetes mellitus without complications; Z79.4 Long term (current) use of insulin; E78.2 Mixed hyperlipidemia; I10 Essential (primary) hypertension
CPT/HCPCS: 36415; 80048; 80061; 80076; 83036; 83735; 84439; 84443; 85025

== ENCOUNTER 2025-02-09 14:12 | Outpatient (CLI) | payer MEDICARE, SELFPAY ==
--- NOTE | 2025-02-09 14:15 | CT_ITS ---
FINAL REPORT TECHNIQUE: thin section axial CT with and without IV contrast supplemented with multiplanar 3-D reconstruction of the head. This study was performed with techniques to keep radiation doses as low as reasonably achievable, (ALARA)individualized dose reduction techniques using automated exposure control or adjustment of mA and/or kV according to the patient's size were employed. CLINICAL HISTORY: dizziness, blurry vision COMPARISON: None FINDINGS: HEAD CT: The ventricles are normal in size. There is no evidence of hemorrhage. There is an extra-axial mass present in the right frontal region, 2.7 x 1.3 cm in size, which appears dural based. The appearance is homogeneously dense, favor a meningioma. No extra-axial fluid is seen. The sinuses are normal. CTA: The cranial circulation is unremarkable. There is no significant stenosis, aneurysm or occlusion. IMPRESSION: Unremarkable intracranial CTA of the head. Extra-axial mass in the right frontal region, dural based, favor meningioma. Suggest with or without contrast or MRI for further evaluation. Reviewed, Interpreted and Dictated by Khang Marin MD Transcribed by Amy Naranjo Authenticated and [facility]
--- NOTE | 2025-02-09 14:15 | CT_ITS ---
FINAL REPORT TECHNIQUE: NASCET technique utilized for stenosis evaluation. CLINICAL HISTORY: dizziness, blurry vision COMPARISON: None FINDINGS: RIGHT CAROTID: There is calcification noted in the carotid bifurcation without evidence of significant stenosis. No significant stenosis is seen of the cervical common or internal carotid artery. LEFT CAROTID: There is calcification noted in the carotid bifurcation without evidence of significant stenosis. No significant stenosis seen of the cervical common or internal carotid artery. VERTEBRALS: The vertebrals are patent and symmetric. No significant stenosis is present. IMPRESSION: No significant arterial abnormality. Reviewed, Interpreted and Dictated by Khang Marin MD Transcribed by Amy Naranjo Authenticated and [facility]
[2025-02-09] MEDS: IOPAMIDOL-370 (76%);100ML BOTTLE 80 ML IV (14:54)
[2025-02-09] MEDS: 0.9 % SODIUM CHLORIDE 50 ML VIAL IV (14:54)
[2025-02-09] MEDS: SODIUM CHLORIDE 0.9% 10ML SYR (RAD ONLY) 10 ML IV (14:54)
== END 2025-02-09 23:59 | disposition home or self-care (01) ==
LOC: RAD 14:14
PROVIDERS: PCP Emergency Medicine; Visit Provider Physician Assistant
DX: G93.9 Disorder of brain, unspecified (principal); H53.8 Other visual disturbances; R42 Dizziness and giddiness
CPT/HCPCS: 70496; 70498; Q9967

== ENCOUNTER 2025-02-23 13:10 | Outpatient (CLI) | payer MEDICARE, SELFPAY ==
--- NOTE | 2025-02-23 13:00 | MR_ITS ---
FINAL REPORT TECHNIQUE: Multiplanar MR, without and with gadolinium enhancement CLINICAL HISTORY: frontal lobe mass. abnormal ct scan. dizziness FINDINGS: Diffusion sequences show no signal abnormality to indicate acute infarct. An extra-axial ovoid mass is seen in the right frontal region. Lesion shows homogeneous intense enhancement with features most suggestive of meningioma. The lesion measures 23 x 28 x 12 mm. There is some mass effect on the adjacent frontal cortex without edema. No intra-axial mass, hemorrhage or edema is seen. Mild chronic microvascular changes are seen involving the periventricular white matter. Ventricles are normal. Major vascular flow voids are intact. IMPRESSION: 1. Right frontal mass compatible with meningioma with mild mass effect on the frontal cortex but no associated edema 2. No evidence of acute infarct or intra-axial mass Authenticated and [facility]
--- OUTSIDE RECORDS SUMMARY | 2025-02-23 13:12 | XMS_ITS | Clinical Summary ---
Author Organization [facility] Address [address] [place] [address] Care Team Providers Care Room Clerk Name Role Phone Yariel Person MD Primary Care Provider [phone] Social History Tobacco Use Types Packs/Day Years [...] Vaccine (2 - 2024- season) 2024 Insurance [facility] MEDICARE REPLACEMENT Care Teams Room Clerk Relationship Specialty Start Date End Date Yariel Person MD [address] [place] [id number] PCP - General Emergency Medicine 11/27/22
[2025-02-23] MEDS: GADOTERIDOL INJ 20ML SYRINGE 19 ML IV (14:05)
== END 2025-02-23 23:59 | disposition home or self-care (01) ==
LOC: RAD 13:10
PROVIDERS: PCP Emergency Medicine; Visit Provider Physician Assistant
DX: G93.89 Other specified disorders of brain (principal)
CPT/HCPCS: 70553; A9576